=== PATIENT | female | born 1985 | race Caucasian/White ===

== ENCOUNTER 2018-06-26 12:44 | Emergency (ER) | payer OTHER ==
[2018-06-26 13:51] LABS: Urine Blood NEGATIVE (NEG); Urine Glucose NEGATIVE (NEG); Urine Protein NEGATIVE (NEG); Urine pH 8.5 (5.0-7.0)
--- NOTE | 2018-06-26 14:36 | EDPHYS ---
Physician Documentation [facility] Name: Mera Perea Age: 33 yrs Sex: Female : 1985 Arrival Date: 06/26/2018 Time: 12:47 Bed 10 Private MD: None, None ED Physician Jose Luis Jackson HPI: 06/26 17:11 This 33 yrs old Female presents to ER via Ambulatory with complaints of Flu ps1 Symptoms. 17:11 patient has had a cough, n/v, fatigue headache for the last 24 hours. Course is ps1 constant. 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 Tried to take motrin. No remitting factors. Urine is cloudy. . 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 - Social history:: Smoking status: Patient uses tobacco products, denies chronic smoking, but will smoke occasionally. - Ebola Screening: : Patient positive for the following Ebola Virus Disease associated symptoms: . ROS: 17:11 Eyes: Negative for injury, pain, redness, and discharge, ENT: Negative for injury, ps1 pain, and discharge, Cardiovascular: Negative for chest pain, palpitations, and edema, Respiratory: Negative for shortness of breath, cough, wheezing, and pleuritic chest pain, MS/Extremity: Negative for injury and deformity, Skin: Negative for injury, rash, and discoloration. 17:11 Respiratory: Positive for cough. 17:11 Abdomen/GI: Positive for nausea and vomiting. 17:11 Neuro: Positive for headache. Exam: 17:11 Constitutional: This is a well developed, well nourished patient who is awake, alert, ps1 and in no acute distress. Head/Face: Normocephalic, atraumatic. Eyes: Pupils equal round and reactive to light, extra-ocular motions intact. Lids and lashes normal. Conjunctiva and sclera are non-icteric and not injected. Chest/axilla: Normal chest wall appearance and motion. Nontender with no deformity. No lesions are appreciated. Cardiovascular: Regular rate and rhythm. No gallops, murmurs, or rubs. Normal PMI, no JVD. No pulse deficits. Respiratory: Lungs have equal breath sounds bilaterally, clear to auscultation and percussion. No rales, rhonchi or wheezes noted. No increased work of breathing, no retractions or nasal flaring. Abdomen/GI: Soft, non-tender, with normal bowel sounds. No distension or tympany. No guarding or rebound. No evidence of tenderness throughout. Skin: Warm, dry with normal turgor. Normal color with no rashes, no lesions, and no evidence of cellulitis. MS/ Extremity: Pulses equal, no cyanosis. Neurovascular intact. Full, normal range of motion. Neuro: Awake and alert, GCS 15, oriented to person, place, time, and situation. Cranial nerves II-XII grossly intact. Sensory grossly intact. Vital Signs: 12:55 BP 118 / 80; Pulse 63; Resp 18; Temp 98.1; Pulse Ox 99% on R/A; Weight 74.84 kg; Height ph 5 ft. 3 in. (160.02 cm); Pain 0/10; 12:55 Body Mass Index 29.23 (74.84 kg, 160.02 cm) ph MDM: 13:46 Patient medically screened. ps1 17:11 Data reviewed: vital signs, nurses notes, and as a result, I will discharge patient. ps1 06/26 13:00 Order name: Flu; Complete Time: 13:46 ph 06/26 13:34 Order name: Strep; Complete Time: 13:57 ps1 06/26 13:34 Order name: Urine Dipstick-Ancillary (obtain specimen); Complete Time: 13:37 ps1 06/26 13:47 Order name: Urine --Ancillary (enter results); Complete Time: 13:56 hb 06/26 13:47 Order name: Urine Dipstick--Ancillary (enter results); Complete Time: 13:56 hb 06/26 13:58 Order name: Throat Culture EDMS Administered Medications: No medications were administered Disposition: 06/26/18 14:35 Discharged to Home. Impression: viral illness. - Condition is Stable. - Discharge Instructions: Viral Respiratory Infection, [id number]. - Prescriptions for promethazine- codeine 6.25-10 mg/5 mL Oral syrup - take 5 milliliter by ORAL route every 4-6 hours as needed, not to exceed 30 mL in 24 hours; 120 milliliter. Zofran 4 mg Oral Tablet - take 1 tablet by ORAL route every 12 hours As needed; 20 tablet. - Work release form, Medication Reconciliation Form, Thank You Letter, Antibiotic Education, Prescription Opioid Use form. - Follow up: Private Physician; When: As needed; Reason: Recheck today's complaints, Continuance of care, Re-evaluation by your physician. Follow up: Emergency Department; When: As needed; Reason: Worsening of condition. - Problem is new. - Symptoms have improved. Signatures: Dispatcher [employer] EDDee Sneed RN RN ph Jose Luis Jackson MD MD ps1 Corrections: (The following items were deleted from the chart) 15:00 14:35 06/26/2018 14:35 Discharged to Home. Impression: viral illness. Condition is ph Stable. Forms are Medication Reconciliation Form, Thank You Letter, Antibiotic Education, Prescription Opioid Use. Follow up: Private Physician; When: As needed; Reason: Recheck today's complaints, Continuance of care, Re-evaluation by your physician. Follow up: Emergency Department; When: As needed; Reason: Worsening of condition. Problem is new. Symptoms have improved. ps1
--- NOTE | 2018-06-26 14:36 | ER ---
Nurse's Notes [facility] Name: Mera Perea Age: 33 yrs Sex: Female : 1985 Arrival Date: 06/26/2018 Time: 12:47 Bed 10 Private MD: None, None Diagnosis: viral illness Presentation: 06/26 12:54 Presenting complaint: Patient states: Dizziness and vomiting since this morning, also ph reports nasal congestion, cough and chills. Transition of care: patient was not received from another setting of care. Onset of symptoms was June 26, 2018. Risk Assessment: Do you want to hurt yourself or someone else? Patient reports no desire to harm self or others. Initial Sepsis Screen: Does the patient meet any 2 criteria? No. Patient's initial sepsis screen is negative. Does the patient have a suspected source of infection? No. Patient's initial sepsis screen is negative. Care prior to arrival: None. 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 - Social history:: Smoking status: Patient uses tobacco products, denies chronic smoking, but will smoke occasionally. - Ebola Screening: : Patient positive for the following Ebola Virus Disease associated symptoms: . Screenin:33 Abuse screen: Denies threats or abuse. Denies injuries from another. Nutritional ph screening: No deficits noted. Tuberculosis screening: No symptoms or risk factors identified. Fall Risk None identified. Assessment: 13:00 General: Appears in no apparent distress. comfortable, slender, well groomed, Behavior ph is calm, cooperative, appropriate for age, Denies fever. Pain: Denies pain. Neuro: Level of Consciousness is awake, alert, obeys commands, Oriented to person, place, time, situation, Reports dizziness, Denies weakness blurred vision headache. Cardiovascular: Capillary refill < 3 seconds in bilateral fingers Patient's skin is warm and dry. GI: Reports nausea, vomiting, Patient currently denies abdominal pain, diarrhea. : Urine is cloudy, Denies burning with urination, urinary frequency. EENT: Reports nasal congestion nasal discharge Denies pain when swallowing. Derm: Skin is intact, is healthy with good turgor, Skin is pink, warm \T\ dry. Musculoskeletal: Circulation, motion, and sensation intact. Range of motion: intact in all extremities. Vital Signs: 12:55 BP 118 / 80; Pulse 63; Resp 18; Temp 98.1; Pulse Ox 99% on R/A; Weight 74.84 kg; Height ph 5 ft. 3 in. (160.02 cm); Pain 0/10; 12:55 Body Mass Index 29.23 (74.84 kg, 160.02 cm) ph ED Course: 12:47 Patient arrived in ED. sb2 12:48 None, None is Private Physician. sb2 12:55 Triage completed. ph 12:56 Arm band placed on. ph 13:00 Patient has correct armband on for positive identification. Bed in low position. Call ph light in reach. Side rails up X 1. Warm blanket given. 13:00 Urine collected: clean catch specimen, cloudy, Flu and/or RSV swab sent to lab. Strep ph swab sent to lab. 13:23 Jose Luis Jackson MD is Attending Physician. ps1 13:25 Dee Luna RN is Primary Nurse. ph Administered Medications: No medications were administered Outcome: 14:35 Discharge ordered by . ps1 15:00 Patient left the ED. ph Signatures: Dee Luna, MANUELITO RN ph Jose Luis Jackson MD MD ps1 Taylor Philip sb2
[2018-06-26 15:43] VITALS: BP 118/80; TEMP 98.1; O2SAT 99
== END 2018-06-26 15:00 | disposition home or self-care (01) ==
LOC: ER 12:44
DX: B34.9 Viral infection, unspecified (principal); Z72.0 Tobacco use
CPT/HCPCS: 81003; 81025; 87070; 87081; 87804; 99282

== ENCOUNTER 2019-01-27 08:44 | Emergency (ER) | payer OTHER, SELFPAY ==
[2019-01-27 10:14] LABS: Absolute Lymphocytes (CBC) 1.3 K/uL (0.7-4.9); Absolute Monocytes 0.3 K/uL (0.1-1.3); Absolute Neutrophil 3.6 K/uL (1.8-8.0); Basophils % 1.1 % (0-1.3); Eosinophils % 3.7 % (0-4.4); Hematocrit 41.8 % (36.0-45.0); Lymphocytes % 23.7 % (15.3-44.8); MPV 10.5 fL (7.6-11.3); Monocytes % 6.1 % (3.3-12.3); RBC Red Blood Cell Count 4.33 M/uL (3.86-4.86)
[2019-01-27 10:29] LABS: BUN Blood Urea Nitrogen 12 mg/dL (7-18); Bicarbonate 28 mmol/L (21-32); Glucose Level 92 mg/dL (74-106); Potassium 3.9 mmol/L (3.5-5.1); Sodium Level 139 mmol/L (136-145)
--- NOTE | 2019-01-27 10:44 | EDPHYS ---
Physician Documentation [facility] Name: Mera Perea Age: 33 yrs Sex: Female : 1985 Arrival Date: 01/27/2019 Time: 08:48 Bed 9 Private MD: ED Physician Miko Cason HPI: 01/27 09:57 This 33 yrs old Female presents to ER via Ambulatory with complaints of jr8 Cellulitis. 09:57 The patient's rash thought to be caused by an unknown cause. The rash is located on the jr8 right leg and left leg. The rash can be described as erythematous, patchy. Onset: The symptoms/episode began/occurred acutely, yesterday. Associated signs and symptoms: Pertinent positives: Pain. Severity of symptoms: At their worst the symptoms were mild in the emergency department the symptoms are unchanged. The patient has not experienced similar symptoms in the past. The patient has not recently seen a physician. Patient stated that she noticed mild erythema to inner right leg near ankle yesterday while at work. Today it increased in size and now has a patchy area to left leg in same spot. Denies itching. Denies recent contact with any plants or other substances that could of caused this . 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 - Social history:: Smoking status: Patient uses tobacco products, denies chronic smoking, but will smoke occasionally. - Ebola Screening: : Patient negative for fever greater than or equal to 101.5 degrees Fahrenheit, and additional compatible Ebola Virus Disease symptoms Patient denies exposure to infectious person Patient denies travel to an Ebola-affected area in the 21 days before illness onset No symptoms or risks identified at this time. ROS: 09:57 Constitutional: Negative for fever, chills, and weight loss. jr8 09:57 Skin: Positive for rash. 09:57 All other systems are negative. 09:57 Hematologic/Lymphatic: Negative for anemia, abnormal bleeding, swollen nodes, joint jr8 pain, tender nodes. Exam: 09:57 Eyes: Pupils equal round and reactive to light, extra-ocular motions intact. Lids and jr8 lashes normal. Conjunctiva and sclera are non-icteric and not injected. Cornea within normal limits. Periorbital areas with no swelling, redness, or edema. ENT: Nares patent. No nasal discharge, no septal abnormalities noted. Tympanic membranes are normal and external auditory canals are clear. Oropharynx with no redness, swelling, or masses, exudates, or evidence of obstruction, uvula midline. Mucous membranes moist. Neck: Trachea midline, no thyromegaly or masses palpated, and no cervical lymphadenopathy. Supple, full range of motion without nuchal rigidity, or vertebral point tenderness. No Meningismus. Cardiovascular: Regular rate and rhythm with a normal S1 and S2. No gallops, murmurs, or rubs. Normal PMI, no JVD. No pulse deficits. Respiratory: Lungs have equal breath sounds bilaterally, clear to auscultation and percussion. No rales, rhonchi or wheezes noted. No increased work of breathing, no retractions or nasal flaring. Abdomen/GI: Soft, non-tender, with normal bowel sounds. No distension or tympany. No guarding or rebound. No evidence of tenderness throughout. Back: No spinal tenderness. No costovertebral tenderness. Full range of motion. MS/ Extremity: Pulses equal, no cyanosis. Neurovascular intact. Full, normal range of motion. Neuro: Awake and alert, GCS 15, oriented to person, place, time, and situation. Cranial nerves II-XII grossly intact. Motor strength 5/5 in all extremities. Sensory grossly intact. Cerebellar exam normal. Normal gait. 09:57 Skin: Patient has three patchy areas on both legs that are non blanching and petechial looking with mild erythema. No increase warmth felt when compared to other parts of the body. Mild pain to palpation. No underlying indurated tissue felt. No other rashes or bruising noted to the rest of patients body . Vital Signs: 09:07 BP 139 / 88; Pulse 80; Resp 16; Temp 98.4; Pulse Ox 98% on R/A; Weight 86.18 kg; Height iw 5 ft. 3 in. (160.02 cm); Pain 3/10; 10:35 BP 133 / 82; Pulse 78; Resp 16; Temp 98.1(TE); Pulse Ox 99% on R/A; mh5 09:07 Body Mass Index 33.66 (86.18 kg, 160.02 cm) iw MDM: 09:32 Patient medically screened. [facility] 10:41 Data reviewed: vital signs, nurses notes, lab test result(s), and as a result, I will jr8 discharge patient. Data interpreted: Pulse oximetry: on room air is 99 %. Interpretation: normal. Counseling: I had a detailed discussion with the patient and/or guardian regarding: the historical points, exam findings, and any diagnostic results supporting the discharge/admit diagnosis, lab results, the need for outpatient follow up, a family practitioner, to return to the emergency department if symptoms worsen or persist or if there are any questions or concerns that arise at home. ED course: Discussed with patient that at this time the rash seems more of a vasculitis like reaction then infection. Will start steroids instead of antibiotics at this time. If worse to come back. Otherwise needs f/u with PCP. Patient good with this . 01/27 09:48 Order name: CBC with Diff [facility] 01/27 09:48 Order name: Basic Metabolic Panel; Complete Time: 10:41 [facility] 01/27 09:48 Order name: Urine Dipstick-Ancillary (obtain specimen); Complete Time: 10:56 [facility] 01/27 09:49 Order name: CBC with Automated Diff; Complete Time: 10:17 EDMS Administered Medications: No medications were administered Disposition: 13:42 Co-signature as Attending Physician, Miko Cason MD. Disposition: 01/27/19 10:43 Discharged to Home. Impression: Vasculitis limited to the skin, unspecified. - Condition is Stable. - Discharge Instructions: Vasculitis. - Prescriptions for Prednisone 20 mg Oral Tablet - take 3 tablet by ORAL route once daily for 5 days; 15 tablet. - Medication Reconciliation Form, Thank You Letter, Antibiotic Education, Prescription Opioid Use form. - Follow up: Private Physician; When: 5 - 6 days; Reason: Recheck today's complaints, Continuance of care, Re-evaluation by your physician. - Problem is new. - Symptoms are unchanged. Signatures: Dispatcher [employer] EDChristina Barrientos RN RN iw Roszak, Josh, PA PA Miko Solomon MD MD Corrections: (The following items were deleted from the chart) 11:01 10:43 01/27/2019 10:43 Discharged to Home. Impression: Vasculitis limited to the skin, iw unspecified. Condition is Stable. Forms are Medication Reconciliation Form, Thank You Letter, Antibiotic Education, Prescription Opioid Use. Follow up: Private Physician; When: 5 - 6 days; Reason: Recheck today's complaints, Continuance of care, Re-evaluation by your physician. Problem is new. Symptoms are unchanged. jr8
--- NOTE | 2019-01-27 10:44 | ER ---
Nurse's Notes [facility] Name: Mera Perea Age: 33 yrs Sex: Female : 1985 Arrival Date: 01/27/2019 Time: 08:48 Bed 9 Private MD: Diagnosis: Vasculitis limited to the skin, unspecified Presentation: 01/27 09:05 Presenting complaint: Patient states: area of redness to ramiro ankle area, right worse iw than left, appears to be cellulitis, hx of cellulitis 4 years ago, noticed it yesterday. Transition of care: patient was not received from another setting of care. Onset of symptoms was January 27, 2019. Risk Assessment: Do you want to hurt yourself or someone else? Patient reports no desire to harm self or others. Initial Sepsis Screen: Does the patient meet any 2 criteria? No. Patient's initial sepsis screen is negative. Does the patient have a suspected source of infection? No. Patient's initial sepsis screen is negative. Care prior to arrival: None. 09:05 Method Of Arrival: Ambulatory iw 09:05 Acuity: MERLENE 4 iw 09:54 Acuity: MERLENE 3 iw Triage Assessment: 09:15 General: Appears in no apparent distress. General: Behavior is calm, cooperative. Pain: iw Complains of pain in left leg and right leg. Neuro: Level of Consciousness is awake, alert, obeys commands, Moves all extremities. Cardiovascular: Patient's skin is warm and dry. Respiratory: Respiratory effort is even, unlabored. GI: No signs and/or symptoms were reported involving the gastrointestinal system. Derm: redness to ramiro ankles. Musculoskeletal: Range of motion: intact in all extremities. 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 - Social history:: Smoking status: Patient uses tobacco products, denies chronic smoking, but will smoke occasionally. - Ebola Screening: : Patient negative for fever greater than or equal to 101.5 degrees Fahrenheit, and additional compatible Ebola Virus Disease symptoms Patient denies exposure to infectious person Patient denies travel to an Ebola-affected area in the 21 days before illness onset No symptoms or risks identified at this time. Screenin:00 Abuse screen: Denies threats or abuse. Denies injuries from another. Nutritional iw screening: No deficits noted. Tuberculosis screening: No symptoms or risk factors identified. Fall Risk None identified. Assessment: 09:50 Reassessment: see triage assessment. iw 10:40 Reassessment: Patient appears in no apparent distress at this time. Patient and/or iw family updated on plan of care and expected duration. Pain level reassessed. Patient is alert, oriented x 3, equal unlabored respirations, skin warm/dry/pink. Vital Signs: 09:07 BP 139 / 88; Pulse 80; Resp 16; Temp 98.4; Pulse Ox 98% on R/A; Weight 86.18 kg; Height iw 5 ft. 3 in. (160.02 cm); Pain 3/10; 10:35 BP 133 / 82; Pulse 78; Resp 16; Temp 98.1(TE); Pulse Ox 99% on R/A; 5 09:07 Body Mass Index 33.66 (86.18 kg, 160.02 cm) iw ED Course: 08:48 Patient arrived in ED. as 09:06 Triage completed. iw 09:07 Arm band placed on. iw 09:08 Christina Weston, RN is Primary Nurse. iw 09:15 Prosper Umana PA is PHCP. jr8 09:15 Miko Cason MD is Attending Physician. jr8 10:00 Patient has correct armband on for positive identification. Bed in low position. Call 5 light in reach. Pulse ox on. NIBP on. 10:10 Initial lab(s) drawn, by me, sent to lab. Inserted saline lock: 22 gauge in left 5 antecubital area, using aseptic technique. Blood collected. 11:00 No provider procedures requiring assistance completed. Patient did not have IV access iw during this emergency room visit. Administered Medications: No medications were administered Outcome: 10:43 Discharge ordered by . jr8 11:00 Discharged to home ambulatory. iw 11:00 Condition: good 11:00 Discharge instructions given to patient, Instructed on discharge instructions, follow up and referral plans. medication usage, Demonstrated understanding of instructions, follow-up care, medications, Prescriptions given X 1. 11:01 Patient left the ED. iw Signatures: Leilani Kwon Irene, RN RN iw Prosper Umana PA PA jr8 Amisha Kwon mh5
[2019-01-27 11:17] VITALS: BP 133/82; TEMP 98.1; O2SAT 99
== END 2019-01-27 11:01 | disposition home or self-care (01) ==
LOC: ER 08:44
DX: L95.9 Vasculitis limited to the skin, unspecified (principal); Z72.0 Tobacco use
CPT/HCPCS: 36415; 80048; 85025; 99284

== ENCOUNTER 2020-08-01 20:30 | Emergency (ER) | payer OTHER, SELFPAY ==
--- NOTE | 2020-08-01 22:11 | ER ---
Nurse's Notes [facility] Name: Mera Perea Age: 35 yrs Sex: Female : 1985 Arrival Date: 08/01/2020 Time: 20:34 Bed 17 Private MD: Diagnosis: Acute pharyngitis;Cough Presentation: 08/01 20:39 Chief complaint: Patient states: Tickling in back of throat, low grade fever, and ll1 fatigue started today. Low grade fever at home. No N/V/D. Decreased appetite. Coronavirus screen: Client denies travel out of the [place] in the last 14 days. fatigue, headache, sore throat. Ebola Screen: Patient denies travel to an Ebola-affected area in the 21 days before illness onset. Initial Sepsis Screen: Does the patient meet any 2 criteria? HR > 90 bpm. No. Patient's initial sepsis screen is negative. Does the patient have a suspected source of infection? Yes: Other: SORE THROAT. Risk Assessment: Do you want to hurt yourself or someone else? Patient reports no desire to harm self or others. Onset of symptoms was August 01, 2020. 20:39 Method Of Arrival: Ambulatory ll1 20:39 Acuity: MERLENE 4 ll1 Historical: - Allergies: 20:41 No Known Allergies; ll1 - PMHx: 20:41 Anxiety; Depression; ll1 - PSHx: 20:41 Tubal ligation; ll1 - Immunization history:: Flu vaccine is not up to date. - Social history:: Smoking status: Patient/guardian denies using tobacco, Stopped _ months ago 3. Screenin:37 Abuse screen: Denies threats or abuse. Denies injuries from another. Nutritional mg2 screening: No deficits noted. Tuberculosis screening: No symptoms or risk factors identified. Fall Risk None identified. Assessment: 21:36 General: Appears in no apparent distress. comfortable, Behavior is calm, cooperative. mg2 Pain: Complains of pain in throat. Neuro: Level of Consciousness is awake, alert, obeys commands, Oriented to person, place, time, situation. Cardiovascular: Capillary refill < 3 seconds Patient's skin is warm and dry. Respiratory: Reports cough that is Airway is patent Respiratory effort is even, unlabored, Respiratory pattern is regular, symmetrical. GI: No signs and/or symptoms were reported involving the gastrointestinal system. : No signs and/or symptoms were reported regarding the genitourinary system. EENT: Reports sore throat. Derm: Skin is intact, is healthy with good turgor, Skin is pink, warm \T\ dry. normal. Musculoskeletal: Circulation, motion, and sensation intact. Capillary refill < 3 seconds. Vital Signs: 20:39 BP 134 / 103; Pulse 93; Resp 17; Temp 98.3; Pulse Ox 96% ; Weight 88.45 kg; Height 5 ll1 ft. 3 in. (160.02 cm); Pain 5/10; 22:19 BP 125 / 80; Pulse 80; Resp 17; Temp 98.4; Pulse Ox 100% on R/A; mg2 20:39 Body Mass Index 34.54 (88.45 kg, 160.02 cm) ll1 ED Course: 20:34 Patient arrived in ED. ag3 20:41 Triage completed. ll1 20:41 Mayito Yousif PA is PHCP. cp 20:41 Doc Gomez MD is Attending Physician. cp 20:42 Arm band placed on Patient placed in an exam room, on a stretcher. ll1 20:53 Aleksandr Aldridge, RN is Primary Nurse. mg2 21:18 Flu and/or RSV swab sent to lab. Strep swab sent to lab. jp3 21:37 Patient has correct armband on for positive identification. mg2 21:37 No provider procedures requiring assistance completed. Patient did not have IV access mg2 during this emergency room visit. Administered Medications: No medications were administered Outcome: 22:10 Discharge ordered by MD. cp 22:20 Discharged to home ambulatory. mg2 22:20 Condition: stable 22:20 Discharge instructions given to patient, Instructed on discharge instructions, follow up and referral plans. medication usage, Demonstrated understanding of instructions, follow-up care, medications, Prescriptions given X 1. 22:20 Patient left the ED. mg2 Signatures: Mayito Yousif PA PA cp Gardose, Michele, MANUELITO RN mg2 Norbert Singh 3 Lianna Garcia 3 Britney Daigle RN RN ll1 Corrections: (The following items were deleted from the chart) 08/02 04:26 08/01 22:20 EENT: Throat mg2 mg2
--- NOTE | 2020-08-01 22:11 | EDPHYS ---
Physician Documentation [facility] Name: Mera Perea Age: 35 yrs Sex: Female : 1985 Arrival Date: 08/01/2020 Time: 20:34 Bed 17 Private MD: ED Physician Doc Gomez HPI: 08/01 21:29 This 35 yrs old Female presents to ER via Ambulatory with complaints of Sore cp Throat. 21:29 The patient presents with sore throat. The patient describes throat pain as "tickle" in cp throat. Onset: The symptoms/episode began/occurred today. Associated signs and symptoms: Pertinent positives: cough, fever, Pertinent negatives chest pain, dysphagia, earache, headache. Patient reports having sore throat, cough earlier this week on Monday and having negative test for COVID-19 on Monday. Historical: - Allergies: 20:41 No Known Allergies; ll1 - PMHx: 20:41 Anxiety; Depression; ll1 - PSHx: 20:41 Tubal ligation; ll1 - Immunization history:: Flu vaccine is not up to date. - Social history:: Smoking status: Patient/guardian denies using tobacco, Stopped _ months ago 3. ROS: 21:33 Constitutional: Negative for body aches, chills, fever. cp 21:33 ENT: Positive for sore throat, Negative for drainage from ear(s), ear pain, difficulty cp swallowing, difficulty handling secretions. 21:33 Respiratory: Positive for cough. 21:33 Skin: Negative for rash. 21:33 Neuro: Negative for headache. 21:33 All other systems are negative. Exam: 21:35 Constitutional: The patient appears in no acute distress, alert, awake, non-toxic, well cp developed, well nourished. 21:35 Head/Face: Normocephalic, atraumatic. cp 21:35 Eyes: Periorbital structures: appear normal, Conjunctiva: normal, no exudate, no injection, Lids and lashes: appear normal, bilaterally. 21:35 ENT: External ear(s): are unremarkable, Ear canal(s): are normal, clear, TM's: dullness, bilaterally, Nose: is normal, Mouth: Lips: moist, Oral mucosa: moist, Posterior pharynx: Airway: no evidence of obstruction, patent, Tonsils: no enlargement, no exudate, swelling, is not appreciated, erythema, that is mild, exudate, is not appreciated, Voice: is normal. 21:35 Neck: Lymph nodes: no appreciated lymphadenopathy. 21:35 Chest/axilla: Inspection: normal. 21:35 Cardiovascular: Rate: normal. 21:35 Respiratory: the patient does not display signs of respiratory distress, Respirations: normal, no use of accessory muscles, no retractions, labored breathing, is not present, Breath sounds: are clear throughout, no decreased breath sounds, no stridor, no wheezing. 21:35 Abdomen/GI: Exam negative for discomfort, distension, guarding, Inspection: abdomen appears normal. Vital Signs: 20:39 BP 134 / 103; Pulse 93; Resp 17; Temp 98.3; Pulse Ox 96% ; Weight 88.45 kg; Height 5 ll1 ft. 3 in. (160.02 cm); Pain 5/10; 22:19 BP 125 / 80; Pulse 80; Resp 17; Temp 98.4; Pulse Ox 100% on R/A; mg2 20:39 Body Mass Index 34.54 (88.45 kg, 160.02 cm) ll1 MDM: 20:47 Patient medically screened. cp 21:30 Differential diagnosis: group A strep tonsillitis, influenza, pharyngitis. cp 22:10 Data reviewed: vital signs, nurses notes, lab test result(s), and as a result, I will cp discharge patient. 22:10 Counseling: I had a detailed discussion with the patient and/or guardian regarding: the cp historical points, exam findings, and any diagnostic results supporting the discharge/admit diagnosis, lab results, to return to the emergency department if symptoms worsen or persist or if there are any questions or concerns that arise at home. 08/01 21:06 Order name: Influenza Screen (a \\T\\ B); Complete Time: 22:00 08/01 21:06 Order name: Strep; Complete Time: 22:00 08/01 22:08 Order name: Throat Culture EDMS Administered Medications: No medications were administered Disposition: 22:30 Chart complete. 08/02 04:54 Co-signature as Attending Physician, Doc Gomez MD. [email or web address] Disposition: 08/01/20 22:10 Discharged to Home. Impression: Acute pharyngitis, Cough. - Condition is Stable. - Discharge Instructions: Pharyngitis, Cough, Adult. - Prescriptions for Tessalon Perles 100 mg Oral Capsule - take 2 capsule by ORAL route every 8 hours As needed; 20 capsule. - Medication Reconciliation Form, Thank You Letter, Antibiotic Education, Prescription Opioid Use form. - Follow up: Private Physician; When: 2 - 3 days; Reason: Worsening of condition. - Problem is new. - Symptoms have improved. Signatures: Dispatcher [employer] EDMS Mayito Yousif PA PA cp Aleksandr Aldridge, RN RN mg2 Britney Daigle RN RN ll1 Doc Gomez MD MD mh7 Corrections: (The following items were deleted from the chart) 08/01 22:20 22:10 08/01/2020 22:10 Discharged to Home. Impression: Acute pharyngitis; Cough. mg2 Condition is Stable. Forms are Medication Reconciliation Form, Thank You Letter, Antibiotic Education, Prescription Opioid Use. Follow up: Private Physician; When: 2 - 3 days; Reason: Worsening of condition. Problem is new. Symptoms have improved. cp
[2020-08-04 04:08] VITALS: BP 125/80; TEMP 98.4; O2SAT 100
== END 2020-08-01 22:20 | disposition home or self-care (01) ==
LOC: ER 20:30
DX: R05 Cough (principal)
CPT/HCPCS: 87070; 87081; 87804; 99283

== ENCOUNTER 2021-08-04 20:20 | Emergency (ER) | payer OTHER ==
--- OUTSIDE RECORDS SUMMARY | 2021-08-04 20:23 | XMS REPORT | Continuity of Care Document ---
:1985 Author Organization [facility] t Address [address] [place] [address] Care Team Providers Name Role Phone Pcp, Does Not Have A Primary Care Physician Monica Lucio MD Attending Clinician MONICA LUCIO Attending Clinician Unavailable MONICA LUCIO Attending Clinician Unavailable CHEVY Attending Clinician Unavailable Luigi WHEELER Attending Clinician Unavailable Payers Payer Name Policy Type Policy Number Effective Date Expiration Date S ource Problems Condition Condition Condition Status Onset Resolution Last Treating Co mments Source Name Details Category Date Date Treatment Clinician Date No known No known Disease Unive rs active active ity of problems problems [facility] Allergies, Adverse Reactions, Alerts Allergy Allergy Status Severity Reaction(s) Onset Inactive Treating Comm ents Source Name Type Date Date Clinician NO KNOWN Drug Active Univers ALLERGIE Class ity of [facility] Social History Social Habit Start Date Stop Date Quantity Comments Source Exposure to Not sure [facility] SARS-CoV-2 (event) Medica l Branch Sex Assigned At [birth year] [facility] 00:00:00 00:00:00 [facility] Smoking Status Start Date Stop Date Source Unknown if ever smoked [facility] Medications Ordered Filled Start Stop Current Ordering Indication Dosage Frequency Signature Comments Components Source Medication Medication Date Date Medication? Clinician (SIG) Name Name NaCl 0.9% 2020- No [id number] 8mL Univ ers (NS) 05-07 ity of injection 8 15:30: 14:35 [facility] 00 :00 [facility] NaCl 0.9% 2020- No [id number] 8mL 8 mL, Uni vers (NS) 05-07 Epidural, ity of injection 8 15:30: 14[place]35 [place] dose, On Medical Fri Branch 05/07/21 at 1030, Routine iohexoL 2020- No [id number] 3mL Univer s (OMNIPAQUE 05-07 ity of 300-50 mL)) 15:15: 14:33 [place] injection 3 00 :00 Medical mL Branch lidocaine 2020- No [id number] 10mL Univ ers 1% (PF) 05-07 ity of (XYLOCAINE) 15:15: 14:34 [place] injection 00 :00 Medical 10 mL Branch triamcinolo 2020- No [id number] 80mg Un justice ne 05-07 ity of acetonide 15:15: 14:36 [place] (KENALOG) 00 :00 Medical injection Branch 80 mg triamcinolo 2020- No [id number] 80mg 80 mg, Univers ne 05-07 Epidural, ity of acetonide 15:15: 14:36 [place]CE, 1 [place] ([place] 00 :00 dose, On Medica l injection Fri Branch 80 mg 05/07/21 at 1015, Routine lidocaine 2020- No [id number] 10mL 10 mL, Un justice 1% (PF) 05-07 Infiltrati ity o f (XYLOCAINE) 15:15: 14:34 on, ONCE, [place] injection 00 :00 1 dose, On Medi mary jo 10 mL Fri Branch 05/07/21 at 1015, Routine iohexoL 2020- No [id number] 3mL 3 mL, Unive rs (OMNIPAQUE 05-07 Injection, it y of 300-50 mL)) 15:15: 14:33 [place]CE[place] 1 [place] 3 00 :00 dose, On Medi mary jo mL Fri Branch 05/07/21 at 1015, Routine lactated 2020- No [id number] 500mL Univ ers ringers IV 05-07 ity of infusion 15:00: 19:52 [place] 500 mL 00 :04 Medical Branch gabapentin 2020-0 Yes [id number] 300mg Take 1 Univers 300 mg 8-17 capsule by ity of capsule 00:00: mouth 3 [place] 00 (three) Medical times Branch daily. gabapentin Yes [id number] 300mg Take 1 Univers 300 mg 8-17 capsule by ity of capsule 00:00: mouth 3 [place] 00 (three) Medical times Branch daily. gabapentin Yes [id number] 300mg Take 1 Univers 300 mg 8-17 capsule by ity of capsule 00:00: mouth 3 [place] 00 (three) Medical times Branch daily. Vital Signs Vital Name Observation Time Observation Value Comments Source Systolic blood 2021-05-07 15:05:00 122 mm[facility]Hg[facility] Diastolic blood 2021-05-07 15:05:00 86 mm[Hg] [facility] [place] Heart rate 2021-05-07 15:05:00 75 /min [facility] Respiratory rate 2021-05-07 14:50:00 17 /min [facility] Body temperature 2021-05-07 13:39:00 36.67 Narda [facility] Body height 2021-05-07 13:39:00 160 cm [facility] Body weight 2021-05-07 13:39:00 90.719 kg [facility] BMI 2021-05-07 13:39:00 35.43 kg/m2 [facility] Oxygen saturation in 2021-05-07 13:39:00 98 /min [facility] Arterial blood by [facility] Pulse oximetry Branch Procedures Procedure Date / Time Performed Performing Clinician [facility] e FL TIME OR 2021-05-07 14:50:11 Bárbara Lucio [facility] [place] (NON-REPORTABLE) Medical Branch Encounters Start End Encounter Admission Attending Care Care Encounter Source Date/Time Date/Time Type Type Clinicians Facility Department ID 2021-05-10 2021-05-10 Telephone UZMA Lucio [id number] [facility] 00:00:00 00:00:00 Bárbara MUÑOZ [id number] Alayna DUNNE [id number] [facility] [id number] [place] AND [address] [facility] 2021-05-07 2021-05-07 [facility] [id number] Univers 09:18:53 23:59:00 Encounter Bárbara WANDA [id number] ity juan Orellanaarnulfo DUNNE [id number] [facility] [id number] [place] AND [place] [address] [place] [facility] 2021-05-07 2021-05-07 Outpatient R BÁRBARA LUCIO [facility] [id number] Univers 09:30:00 09:30:00 [facility]UC[facility] [id number] [facility] 2021-05-07 2021-05-07 Outpatient R BÁRBARA LUCIO [facility] [id number] Univers 09:30:00 09:30:00 BÁRBARA LUCIO [facility] 2021-05-07 2021-05-07 Office [facility] [id number] Univers 08:23:15 08:53:15 Visit Bárbara MUÑOZ [id number] ity Harini DUNNE [id number] [facility] s HELPER [id number] [place] AND [place] [address] [place] [facility] 2021-04-29 2021-04-29 Outpatient R MICHELLE REECE [facility] [id number] Univers 11:45:00 11:45:00 [id number] [facility] 2021-04-09 2021-04-09 Outpatient R [facility] [id number] Univers 08:20:00 08:20:00 [id number] [facility] 2021-04-09 2021-04-09 Outpatient R LIAM [facility] [id number] Univers 08:20:00 08:20:00 CONSUELO [facility] 2021-03-30 2021-03-30 Outpatient R MICHELLE REECE [facility] [id number] Univers 11:15:00 11:15:00 [facility] Results This patient has no known results.
[2021-08-04 21:25] LABS: SARS-COV-2 RT PCR NEGATIVE (NEGATIVE)
--- NOTE | 2021-08-04 21:38 | ER ---
Nurse's Notes [facility] Name: Mera Perea Age: 36 yrs Sex: Female : 1985 Arrival Date: 08/04/2021 Time: 20: Bed 26 Private MD: Diagnosis: Diarrhea, unspecified Presentation: 08/04 20:39 Chief complaint: Patient states: Nausea vomiting and fever. Coronavirus screen: Vaccine iw status: Patient reports receiving the 2nd dose of the covid vaccine. Client denies travel out of the [place] in the last 14 days. At this time, the client does not indicate any symptoms associated with coronavirus-19. Ebola Screen: Patient denies exposure to infectious person. No symptoms or risks identified at this time. Initial Sepsis Screen: Does the patient meet any 2 criteria? No. Patient's initial sepsis screen is negative. Risk Assessment: Do you want to hurt yourself or someone else? Patient reports no desire to harm self or others. Onset of symptoms was August 04, 2021 at 16:00. 20:39 Method Of Arrival: Ambulatory iw 20:39 Acuity: MERLENE 3 iw 21:46 Initial Sepsis Screen: Does the patient have a suspected source of infection? No. sv1 Patient's initial sepsis screen is negative. Triage Assessment: 20:41 General: Appears distressed, uncomfortable, ill. Pain: Denies pain. GI: Reports nausea, iw vomiting. 21:44 General: Behavior is cooperative, appropriate for age. sv1 [employer]: 21:43 2, Full Term 2, Premature 0, 0, Living 2 sv1 Historical: - Home Meds: 20:41 Wellbutrin Oral [Active]; iw - PMHx: 20:41 Anxiety; Depression; iw - Immunization history:: Adult Immunizations up to date, Client reports receiving the 2nd dose of the Covid vaccine, Last tetanus immunization: up to date. - Family history:: not pertinent. - Social history:: Smoking status: unknown. Screenin:42 Abuse screen: none. Nutritional screening: No deficits noted. Tuberculosis screening: iw No symptoms or risk factors identified. Fall Risk None identified. Assessment: 21:44 GI: Bowel sounds present X 4 quads. sv1 21:45 GI: Abdomen is round. sv1 Vital Signs: 20:38 BP 115 / 87; Pulse 97; Resp 18; Temp 98.8; Pulse Ox 100% 0 lpm ; Weight 95.25 kg; iw Height 5 ft. 3 in. (160.02 cm); Pain 0/10; 21:43 BP 144 / 112; Pulse 80; Resp 18; Temp 89.2; Pulse Ox 99% 0 lpm ; sv1 20:38 Body Mass Index 37.20 (95.25 kg, 160.02 cm) ED Course: 20:22 Patient arrived in ED. kc5 20:30 Christina Weston, RN is Primary Nurse. iw 20:32 Chino Baptiste PA is PHCP. [facility] 20:32 Kishan Thakkar MD is Attending Physician. [facility] 20:41 Triage completed. iw 20:41 Arm band placed on right wrist. iw 20:42 Patient has correct armband on for positive identification. Bed in low position. Call iw light in reach. Side rails up X 1. 20:55 COVID-19/FLU A+B (Document "Date of Onset" if Symptomatic) Sent. ld1 21:44 No provider procedures requiring assistance completed. Patient did not have IV access sv1 during this emergency room visit. Administered Medications: No medications were administered Outcome: 21:37 Discharge ordered by . [facility] 21:44 Discharged to home ambulatory. sv1 21:44 Condition: stable 21:44 Discharge instructions given to patient. 21:47 Patient left the ED. sv1 Signatures: Chino Baptiste PA PA jmm Williams, Irene, RN RN Luz Marina Sim RN RN ld1 Paola Yost kc5 Nathan Stallworth RN RN sv1
--- NOTE | 2021-08-04 21:38 | EDPHYS ---
Physician Documentation [facility] Name: Mera Perea Age: 36 yrs Sex: Female : 1985 Arrival Date: 08/04/2021 Time: 20:22 Bed 26 Private MD: ED Physician Kishan Thakkar HPI: 08/04 21:35 This 36 yrs old Female presents to ER via Ambulatory with complaints of Fever, Vomiting.jmm 21:35 Onset: The symptoms/episode began/occurred gradually, today. Modifying factors: there jmm are no obvious modifying factors. Associated signs and symptoms: Pertinent positives: abdominal pain, diarrhea. The patient has not experienced similar symptoms in the past. Denies cough or vomiting. Denies shortness of breath. CAN CLEANER: 21:43 2, Full Term 2, Premature 0, 0, Living 2 sv1 Historical: - Home Meds: 20:41 Wellbutrin Oral [Active]; iw - PMHx: 20:41 Anxiety; Depression; iw - Immunization history:: Adult Immunizations up to date, Client reports receiving the 2nd dose of the Covid vaccine, Last tetanus immunization: up to date. - Family history:: not pertinent. - Social history:: Smoking status: unknown. ROS: 21:35 Constitutional: Positive for body aches, chills, fever. jmm 21:35 Respiratory: Negative for cough. 21:35 Abdomen/GI: Positive for nausea, diarrhea. 21:35 All other systems are negative. Exam: 21:35 Constitutional: This is a well developed, well nourished patient who is awake, alert, jmm and in no acute distress. Head/Face: atraumatic. Eyes: EOMI, no conjunctival erythema appreciated ENT: Moist Mucus Membranes Neck: Trachea midline, Supple Chest/axilla: Normal chest wall appearance and motion. Cardiovascular: Regular rate and rhythm. No edema appreciated Respiratory: Normal respirations, no respiratory distress appreciated 21:35 Skin: General appearance color normal MS/ Extremity: Moves all extremities, no obvious deformities appreciated, no edema noted to the lower extremities Neuro: Awake and alert, normal gait Psych: Behavior is normal, Mood is normal, Patient is cooperative and pleasant 21:35 Abdomen/GI: Inspection: abdomen appears normal, Bowel sounds: normal, Palpation: soft, moderate abdominal tenderness, in the right lower quadrant and left lower quadrant. Vital Signs: 20:38 BP 115 / 87; Pulse 97; Resp 18; Temp 98.8; Pulse Ox 100% 0 lpm ; Weight 95.25 kg; iw Height 5 ft. 3 in. (160.02 cm); Pain 0/10; 21:43 BP 144 / 112; Pulse 80; Resp 18; Temp 89.2; Pulse Ox 99% 0 lpm ; sv1 20:38 Body Mass Index 37.20 (95.25 kg, 160.02 cm) iw MDM: 21:34 Patient medically screened. [facility] 21:36 Data reviewed: vital signs, nurses notes. Counseling: I had a detailed discussion with [facility] the patient and/or guardian regarding: the historical points, exam findings, and any diagnostic results supporting the discharge/admit diagnosis, lab results, the need for outpatient follow up, to return to the emergency department if symptoms worsen or persist or if there are any questions or concerns that arise at home. ED course: Patient is alert not patient is alert and nontoxic in appearance in the ED. Abdomen is nontender to palpation. Patient advised follow-up PCP and otherwise given strict return precautions. Patient understood agrees plan of care.. 08/04 20:25 Order name: COVID-19/FLU A+B (Document "Date of Onset" if Symptomatic); Complete Time: ld1 21:32 Administered Medications: No medications were administered Disposition: 23:22 Co-signature as Attending Physician, Kishan Thakkar MD I agree with the assessment and rn plan of care. Attestation: The patient's history, exam findings, diagnostics, and a summary of any interventions or procedures was reviewed in detail with Chino CERRATO. Disposition Summary: 08/04/21 21:37 Discharge Ordered Location: Home [facility] Condition: Stable [facility] Diagnosis - Diarrhea, unspecified [facility] Followup: [facility] - With: Private Physician - When: 2 - 3 days - Reason: Recheck today's complaints, Continuance of care, Re-evaluation by your physician Discharge Instructions: - Discharge Summary Sheet [facility] - Food Choices to Help Relieve Diarrhea, Adult jmm - Diarrhea, Adult m Forms: - Medication Reconciliation Form [facility] - Thank You Letter [facility] - Antibiotic Education [facility] - Prescription Opioid Use [facility] Prescriptions: - ondansetron 4 mg Oral tablet,disintegrating - take 1 tablet by ORAL route every 4-6 hours for 2 days; 20 tablet; Refills: 0, [facility] Product Selection Permitted - dicyclomine 20 mg Oral Tablet - take 1 tablet by ORAL route 4 times per day; 30 tablet; Refills: 0, Product [facility] Selection Permitted Signatures: Dispatcher [employer] Chino Bustillo PA PA jmm Williams, Irene, RN RN iw Nieto, Roman, MD MD rn Villicano, Steven, RN RN sv1
[2021-08-04 22:03] VITALS: BP 144/112; TEMP 89.2; O2SAT 99
== END 2021-08-04 21:47 | disposition home or self-care (01) ==
LOC: ER 20:20
DX: R19.7 Diarrhea, unspecified (principal); F41.8 Other specified anxiety disorders; Z20.822 Contact with and (suspected) exposure to COVID-19
CPT/HCPCS: 0240U; 99283

== ENCOUNTER 2021-12-12 10:05 | Emergency (ER) | payer OTHER ==
--- OUTSIDE RECORDS SUMMARY | 2021-12-12 10:08 | XMS REPORT | Continuity of Care Document ---
:1985 Author Organization [facility] t Address [address] [place] [address] Care Team Providers Name Role Phone Pcp, [...] rs active active ity of problems problems [facility] Allergies, Adverse Reactions, Alerts Allergy Allergy Status Severity Reaction(s) Onset Inactive Treating Comm ents Source Name Type Date Date Clinician NO KNOWN Drug Active Univers ALLERGIE Class ity of S [facility] Social History Social Habit Start Date Stop Date Quantity Comments Source Exposure to Not sure [facility] SARS-CoV-2 (event) Medica l Branch Sex Assigned At [birth year] [facility] 00:00:00 00:00:00 [facility] Smoking Status Start Date Stop Date Source Unknown if ever smoked [facility] Medications Ordered Filled Start Stop Current Ordering Indication Dosage Frequency Signature Comments Components Source Medication Medication Date Date Medication? Clinician (SIG) Name Name NaCl 0.9% 2020- No [id number] 8mL Univ ers (NS) 05-07 ity of injection 8 15:30: 14:35 [facility] 00 :00 [facility] NaCl 0.9% 2020- No [id number] 8mL 8 mL, Uni vers (NS) 05-07 Epidural, ity of injection 8 15:30: 14[place]35 [place] dose, On Medical Fri Branch 05/07/21 at 1030, Routine iohexoL 2020- No [id number] 3mL Univer s (OMNIPAQUE 05-07 ity of 300-50 mL)) 15:15: 14:33 [place] injection 3 00 :00 Medical mL Branch lidocaine 2020- No [id number] 10mL Univ ers 1% (PF) 05-07 ity of (XYLOCAINE) 15:15: 14:34 [place] injection 00 :00 Medical 10 mL Branch triamcinolo 2020- No [id number] 80mg Un justice ne 05-07 ity of acetonide 15:15: 14:36 [place] (KENALOG) 00 :00 Medical injection Branch 80 mg triamcinolo 2020- No [id number] 80mg 80 mg, Univers ne 05-07 Epidural, ity of acetonide 15:15: 14:36 [place] ([place] 00 :00 dose, On Medica l injection Fri Branch 80 mg 05/07/21 at 1015, Routine lidocaine 2020- No [id number] 10mL 10 mL, Un justice 1% (PF) 05-07 Infiltrati ity o f (XYLOCAINE) 15:15: 14:34 on, ONCE, [place] injection 00 :00 1 dose, On Medi mary jo 10 mL Fri Branch 05/07/21 at 1015, Routine iohexoL 2020- No [id number] 3mL 3 mL, Unive rs (OMNIPAQUE 05-07 Injection, it y of 300-50 mL)) 15:15: 14:33 [place] 3 [place] :00 dose, On Medi m[place] jo mL Fri Branch 05/07/21 at 1015, Routine lactated 2020- No [id number] 500mL Univ ers ringers IV 05-07 ity of infusion 15:00: 19:52 [place] 500 mL 00 :04 Medical Branch gabapentin 2020-0 Yes [id number] 300mg Take 1 Univers 300 mg 8-17 capsule by ity of capsule 00:00: mouth 3 [place] 00 (three) Medical times Branch daily. gabapentin Yes [id number] 300mg Take 1 Univers 300 mg 8-17 capsule by ity of capsule 00:00: mouth 3 [place] 00 (three) Medical times Branch daily. gabapentin Yes [id number] 300mg Take 1 Univers 300 mg 8-17 capsule by ity of capsule 00:00: mouth 3 [place] 00 (three) Medical times Branch daily. Vital Signs Vital Name Observation Time Observation Value Comments Source Systolic blood 2021-05-07 15:05:00 122 [facility]Hg[facility] Diastolic blood 2021-05-07 15:05:00 86 mm[Hg] [facility] Heart rate 2021-05-07 15:05:00 75 /min [facility] Respiratory rate 2021-05-07 14:50:00 17 /min [facility] Body temperature 2021-05-07 13:39:00 36.67 Narda [facility] Body height 2021-05-07 13:39:00 160 cm [facility] Body weight 2021-05-07 13:39:00 90.719 kg [facility] BMI 2021-05-07 13:39:00 35.43 kg/m2 [facility] Oxygen saturation in 2021-05-07 13:39:00 98 /min [facility] Arterial blood by [facility] Pulse oximetry Branch Procedures Procedure Date / Time Performed Performing Clinician [facility] [place] TIME OR 2021-05-07 14:50:11 Bárbara Lucio y of [place] (NON-REPORTABLE) Medical Branch Encounters Start End Encounter Admission Attending Care Care Encounter Source Date/Time Date/Time Type Type Clinicians Facility Department ID 2021-05-10 2021-05-10 Telephone UZMA Lucio [id number] [facility] 00:00:00 00:00:00 Bárbara MUÑOZ [id number] Alayna DUNNE [id number] [facility] [id number] [facility] AND [address] [facility] 2021-05-07 2021-05-07 [facility] [id number] Univers 09:18:53 23:59:00 Encounter Bárbara WANDA [id number] ity juan Orellanaarnulfo DUNNE [id number] [facility] s [place] [id number] [facility] [address] [place] [facility] 2021-05-07 2021-05-07 Outpatient R BÁRBARA LUCIO [facility] [id number] Univers 09:30:00 09:30:00 [facility] [id number] [facility] 2021-05-07 2021-05-07 Outpatient R BÁRBARA LUCIO [facility] [id number] Univers 09:30:00 09:30:00 BÁRBARA LUCIO [facility] 2021-05-07 2021-05-07 Office [facility] [id number] Univers 08:23:15 08:53:15 Visit Bárbara MUÑOZ [id number] ity Harini DUNNE [id number] [facility] s [place] [id number] [facility] AND WILKINSON [address] [place] [facility] 2021-04-29 2021-04-29 Outpatient MICHELLE JAVIER [facility] [id number] Univers 11:45:00 11:45:00 [id number] [facility] 2021-04-09 2021-04-09 Outpatient R [facility] [id number] Univers 08:20:00 08:20:00 [id number] [facility] 2021-04-09 2021-04-09 Outpatient R LIAM [facility] [id number] Univers 08:20:00 08:20:00 CONSUELO [facility] 2021-03-30 2021-03-30 Outpatient MICHELLE JAVIER [facility] [id number] Univers 11:15:00 11:15:00 [facility] Results This patient has no known results.
[2021-12-12 12:21] LABS: Urine Blood Negative (Negative); Urine Glucose Negative (Negative); Urine Protein Negative (Negative); Urine pH 7.5 (5.0-7.0)
[2021-12-12 12:22] LABS: Absolute Lymphocytes (CBC) 1.8 K/uL (0.7-4.9); Hematocrit 36.7 % (36.0-45.0); Lymphocytes % 31.3 % (15.3-44.8); MPV 9.7 fL (7.6-11.3); RBC Red Blood Cell Count 4.12 M/uL (3.86-4.86)
[2021-12-12] MEDS ORDERED: NA CHLORIDE 0.9% 1,000 ML ONE (12:26)
[2021-12-12] MEDS ORDERED: KETOROLAC 30 MG/ML INJ ONE (12:26)
--- NOTE | 2021-12-12 13:14 | RAD REPORT ---
EXAM DESCRIPTION: CT - Head Brain Wo Cont - 12/12/2021 12:48 pm CLINICAL HISTORY: Right mastoid tenderness Headache, drowsiness COMPARISON: No comparisonsNo comparisonsCT HEAD SPINE CAP W CONTRAST dated 04/12/2013 TECHNIQUE: All CT scans are performed using dose optimization technique as appropriate and may inclu de automated exposure control or mA/KV adjustment according to patient size. FINDINGS: No intracranial hemorrhage, hydrocephalus or extra-axial fluid collection.No areas of brai n edema or evidence of midline shift. There is a 12 x 11 mm hyperdense mass along the anterior falx, new since 2012 comparative study. The paranasal sinuses and mastoids are clear. The calvarium is intact. IMPRESSION: No acute intracranial abnormality. 12 x 11 mm hyperdense mass along the anterior falx favored to represent a meningioma. Recommend nonem ergent MRI brain with contrast followup.
[2021-12-12 13:38] LABS: SARS-COV-2 RT PCR NEGATIVE (NEGATIVE)
--- NOTE | 2021-12-12 13:58 | ER ---
Nurse's Notes [facility] Name: Mera Perea Age: 36 yrs Sex: Female : 1985 Arrival Date: 12/12/2021 Time: 10:08 Bed 12 Private MD: Diagnosis: Vomiting;Viral infection, unspecified;Post aricular right ear pain Presentation: 12/12 10:28 Chief complaint: Patient states: nausea and vomiting since . Pt also c/o pain aa5 to right ear. Reports diarrhea today. Reports daughter tested positive for COVID-19. Coronavirus screen: chills, nausea, vomiting. Ebola Screen: No symptoms or risks identified at this time. Initial Sepsis Screen: Does the patient meet any 2 criteria? HR > 90 bpm. Does the patient have a suspected source of infection? No. Patient's initial sepsis screen is negative. Risk Assessment: Do you want to hurt yourself or someone else? Patient reports no desire to harm self or others. Onset of symptoms was November 2021. 10:28 Acuity: MERLENE 3 aa5 10:28 Method Of Arrival: Ambulatory aa5 Triage Assessment: 14:38 General: Appears in no apparent distress. Behavior is calm, cooperative. 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 - Social history:: Smoking status: Patient/guardian denies using tobacco. Screenin:37 Abuse screen: Denies threats or abuse. Denies injuries from another. Nutritional iw screening: No deficits noted. Tuberculosis screening: No symptoms or risk factors identified. Fall Risk None identified. Assessment: 11:30 General: Appears uncomfortable, Behavior is calm, cooperative. Pain: Complains of pain aa5 in right ear. Neuro: Level of Consciousness is awake, alert, obeys commands, Oriented to person, place, time, situation. Cardiovascular: Heart tones S1 S2 present Rhythm is regular. Respiratory: Airway is patent Respiratory effort is even, unlabored, Respiratory pattern is regular, symmetrical. GI: Abdomen is round non-distended, Bowel sounds present X 4 quads. Abd is soft and non tender X 4 quads. Reports diarrhea, nausea, vomiting. : No signs and/or symptoms were reported regarding the genitourinary system. EENT: Reports pain in right ear. Derm: Skin is pink, warm \T\ dry. Musculoskeletal: Range of motion: intact in all extremities. 12:30 Reassessment: Patient is alert, oriented x 3, equal unlabored respirations, skin aa5 warm/dry/pink. 14:37 Reassessment: Patient appears in no apparent distress at this time. Patient and/or iw family updated on plan of care and expected duration. Pain level reassessed. Patient is alert, oriented x 3, equal unlabored respirations, skin warm/dry/pink. Patient denies pain at this time. Patient states feeling better. Vital Signs: 10:28 BP 123 / 90; Pulse 94; Resp 18 S; Temp 98.4(O); Pulse Ox 100% on R/A; Weight 88.45 kg aa5 (R); Height 5 ft. 3 in. (160.02 cm) (R); 10:28 Body Mass Index 34.54 (88.45 kg, 160.02 cm) aa5 ED Course: 10:08 Patient arrived in ED. as 10:28 Arm band placed on. aa5 10:28 Patient has correct armband on for positive identification. aa5 10:30 Triage completed. aa5 11:52 Cortez Galeana MD is Attending Physician. kdr 12:15 Initial lab(s) drawn, by ct, sent to lab. Inserted saline lock: 20 gauge in right aa5 antecubital area, using aseptic technique. Blood collected. 12:28 Radha Long, RN is Primary Nurse. aa5 12:50 CT Head Brain wo Cont In Process Unspecified. EDMS 14:38 No provider procedures requiring assistance completed. IV discontinued, intact, iw bleeding controlled, No redness/swelling at site. Pressure dressing applied. Administered Medications: 12:28 Drug: Ketorolac 15 mg Route: IVP; Site: right antecubital; aa5 12:29 Drug: NS 0.9% 1000 ml Route: IV; Rate: 1 bolus; Site: right antecubital; aa5 Outcome: 13:57 Discharge ordered by . kdr 14:38 Discharged to home ambulatory. iw 14:38 Condition: good 14:38 Discharge instructions given to patient, Instructed on discharge instructions, follow up and referral plans. medication usage, Demonstrated understanding of instructions, follow-up care, medications. 14:38 Patient left the ED. iw Signatures: Dispatcher [employer] EDMS Cortez Galeana MD MD kdr Martinez, Amelia as Williams, Irene RN RN iw Radha Long RN RN aa5
--- NOTE | 2021-12-12 13:58 | EDPHYS ---
Physician Documentation [facility] Name: Mera Perea Age: 36 yrs Sex: Female : 1985 Arrival Date: 12/12/2021 Time: 10:08 Bed 12 Private MD: ED Physician Cortez Galeana HPI: 12/12 13:18 This 36 yrs old Female presents to ER via Ambulatory with complaints of Ear Pain, kdr Vomiting/Diarrhea. 13:18 The patient presents with Right mastoid tenderness. The complaints affect the right kdr base of the skull. Onset: The symptoms/episode began/occurred gradually. 13:19 Onset: The symptoms/episode began/occurred gradually, Started last . Modifying kdr factors: The symptoms are alleviated by nothing, the symptoms are aggravated by nothing. Associated signs and symptoms: The patient has no apparent associated signs or symptoms. The patient has not experienced similar symptoms in the past. The patient has not recently seen a physician. 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 - Social history:: Smoking status: Patient/guardian denies using tobacco. ROS: 13:19 Constitutional: Negative for fever, chills, and weight loss, Eyes: Negative for injury, kdr pain, redness, and discharge, Neck: Negative for injury, pain, and swelling, Cardiovascular: Negative for chest pain, palpitations, and edema, Respiratory: Negative for shortness of breath, cough, wheezing, and pleuritic chest pain, Back: Negative for injury and pain, : Negative for injury, bleeding, discharge, and swelling, MS/Extremity: Negative for injury and deformity, Neuro: Negative for headache, weakness, numbness, tingling, and seizure activity. Psych: Negative for depression, anxiety, suicide ideation, homicidal ideation, and hallucinations, Allergy/Immunology: Negative for hives, rash, and allergies, Endocrine: Negative for neck swelling, polydipsia, polyuria, polyphagia, and marked weight changes, Hematologic/Lymphatic: Negative for swollen nodes, abnormal bleeding, and unusual bruising. 13:19 Abdomen/GI: Positive for nausea and vomiting, nausea, Negative for diarrhea, constipation, abdominal cramps, abdominal distension, anorexia, dysphagia, hematemesis, black/tarry stool, rectal pain, rectal bleeding. Exam: 13:19 Constitutional: This is a well developed, well nourished patient who is awake, alert, kdr and in no acute distress. Head/Face: Normocephalic, atraumatic. Eyes: Pupils equal round and reactive to light, extra-ocular motions intact. Lids and lashes normal. Conjunctiva and sclera are non-icteric and not injected. Cornea within normal limits. Periorbital areas with no swelling, redness, or edema. Neck: Trachea midline, no thyromegaly or masses palpated, and no cervical lymphadenopathy. Supple, full range of motion without nuchal rigidity, or vertebral point tenderness. No Meningismus. Chest/axilla: Normal chest wall appearance and motion. Nontender with no deformity. No lesions are appreciated. Cardiovascular: Regular rate and rhythm with a normal S1 and S2. No gallops, murmurs, or rubs. Normal PMI, no JVD. No pulse deficits. Respiratory: Lungs have equal breath sounds bilaterally, clear to auscultation and percussion. No rales, rhonchi or wheezes noted. No increased work of breathing, no retractions or nasal flaring. 13:19 Head/face: Noted is tenderness, that is mild, of the right base of the skull. Vital Signs: 10:28 BP 123 / 90; Pulse 94; Resp 18 S; Temp 98.4(O); Pulse Ox 100% on R/A; Weight 88.45 kg aa5 (R); Height 5 ft. 3 in. (160.02 cm) (R); 10:28 Body Mass Index 34.54 (88.45 kg, 160.02 cm) aa5 MDM: 13:19 Data reviewed: vital signs, nurses notes, lab test result(s), radiologic studies. kdr Counseling: I had a detailed discussion with the patient and/or guardian regarding: the historical points, exam findings, and any diagnostic results supporting the discharge/admit diagnosis, lab results, radiology results. 13:57 Patient medically screened. [facility] 12/12 10:42 Order name: COVID-19/FLU A+B (Document "Date of Onset" if Symptomatic); Complete Time: pm1 13:49 12/12 12:09 Order name: CBC with Diff; Complete Time: 13:17 kdr 12/12 12:09 Order name: Chem 7; Complete Time: 13:17 kdr 12/12 12:09 Order name: CT Head Brain wo Cont; Complete Time: 13:17 kdr 12/12 12:21 Order name: Urine Dipstick-Ancillary; Complete Time: 13:17 EDMS 12/12 13:05 Order name: Urine --Ancillary (enter results); Complete Time: 13:49 eb 12/12 12:28 Order name: Urine Dipstick-Ancillary (obtain specimen); Complete Time: 12:28 aa5 12/12 12:28 Order name: Urine Test (obtain specimen); Complete Time: 12:28 aa5 Administered Medications: 12:28 Drug: Ketorolac 15 mg Route: IVP; Site: right antecubital; aa5 12:29 Drug: NS 0.9% 1000 ml Route: IV; Rate: 1 bolus; Site: right antecubital; aa5 Disposition Summary: 12/12/21 13:57 Discharge Ordered Location: Home kdr Problem: new kdr Symptoms: have improved kdr Condition: Stable kdr Diagnosis - Vomiting kdr - Viral infection, unspecified kdr - Post aricular right ear pain kdr Followup: kdr - With: Private Physician - When: 2 - 3 days - Reason: If symptoms return, Further diagnostic work-up, Recheck today's complaints, Continuance of care, Re-evaluation by your physician Discharge Instructions: - Discharge Summary Sheet kdr - Viral Respiratory Infection kdr - Viral Illness, Adult kdr Forms: - Medication Reconciliation Form kdr - Thank You Letter kdr - Work release form iw Signatures: Dispatcher [employer] Cortez Sierra MD MD kdr Radha Long, RN RN aa5
[2021-12-12 15:09] VITALS: BP 123/90; TEMP 98.4; O2SAT 100
== END 2021-12-12 14:38 | disposition home or self-care (01) ==
LOC: ER 10:05
DX: B34.9 Viral infection, unspecified (principal); H92.01 Otalgia, right ear; Z20.822 Contact with and (suspected) exposure to COVID-19
CPT/HCPCS: 85025; 80048; 36415; 81025; 81003; 0240U; 70450; 96374; 99284; J7030

== ENCOUNTER 2022-02-12 00:07 | Emergency (ER) | payer OTHER ==
--- NOTE | 2022-02-12 03:17 | ER ---
Nurse's Notes [facility] Name: Mera Perea Age: 36 yrs Sex: Female : 1985 Arrival Date: 02/12/2022 Time: 00:08 Bed 8 Private MD: Diagnosis: Contusion of unspecified part of head, initial encounter-12 MM meningioma, unchanged Presentation: 02/12 00:30 Chief complaint: Patient states: " my head started hurting real bad and I started vc1 feeling woosy, then about 30 minutes later I felt my head swelling, when I touched it my finger made a big indent.". Coronavirus screen: Vaccine status: Patient reports receiving the 2nd dose of the covid vaccine. Pfizer At this time, the client does not indicate any symptoms associated with coronavirus-19. Ebola Screen: No symptoms or risks identified at this time. Initial Sepsis Screen: Does the patient meet any 2 criteria? HR > 90 bpm. No. Patient's initial sepsis screen is negative. Does the patient have a suspected source of infection? No. Patient's initial sepsis screen is negative. Risk Assessment: Do you want to hurt yourself or someone else? Patient reports no desire to harm self or others. Onset of symptoms was February 12, 2022. 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 - Social history:: Smoking status: Patient reports the use of cigarette tobacco products, denies chronic smoking, but will smoke occasionally. - Family history:: not pertinent. Screenin:39 Abuse screen: Denies threats or abuse. Denies injuries from another. Nutritional lg3 screening: No deficits noted. Tuberculosis screening: Fall Risk None identified. Assessment: 01:39 General: Appears in no apparent distress. comfortable, Behavior is calm, cooperative. lg3 Pain: Complains of pain in right side of forehead Pain currently is 4 out of 10 on a pain scale. Neuro: No deficits noted. Level of Consciousness is awake, alert, obeys commands, Oriented to person, place, time, situation. Cardiovascular: No deficits noted. Denies chest pain, shortness of breath, Capillary refill < 3 seconds Clubbing of nail beds is absent JVD Patient's skin is warm and dry. Respiratory: No deficits noted. Airway is patent Trachea midline Respiratory effort is even, unlabored, Respiratory pattern is regular, symmetrical, Breath sounds are clear bilaterally. GI: No deficits noted. No signs and/or symptoms were reported involving the gastrointestinal system. Abdomen is round non-distended. : No deficits noted. No signs and/or symptoms were reported regarding the genitourinary system. EENT: No deficits noted. No signs and/or symptoms were reported regarding the EENT system. Derm: Skin is intact, is healthy with good turgor, Skin is dry, Skin temperature is warm swelling noted to right side of forehead. Musculoskeletal: No deficits noted. No signs and/or symptoms reported regarding the musculoskeletal system. Circulation, motion, and sensation intact. Range of motion: intact in all extremities. 02:50 Reassessment: Patient appears in no apparent distress at this time. No changes from lg3 previously documented assessment. Patient and/or family updated on plan of care and expected duration. Pain level reassessed. Patient is alert, oriented x 3, equal unlabored respirations, skin warm/dry/pink. Vital Signs: 00:30 Pulse 113; Resp 18; Temp 98; Pulse Ox 100% ; Weight 90.72 kg; Height 5 ft. 3 in. vc1 (160.02 cm); Pain 4/10; 00:35 BP 109 / 87; vc1 03:23 BP 116 / 88; Pulse 98; Resp 17 S; Pulse Ox 100% on R/A; lg3 00:30 Body Mass Index 35.43 (90.72 kg, 160.02 cm) vc1 [place]idan Coma Score: 01:03 Eye Response: spontaneous(4). Verbal Response: oriented(5). Motor Response: obeys kendal commands(6). Total: 15. ED Course: 00:08 Patient arrived in ED. am2 00:33 Triage completed. vc1 00:33 Arm band placed on left wrist. vc1 00:35 Mayito Diamond MD is Attending Physician. kendal 00:52 Gabi Allan, RN is Primary Nurse. lg3 01:40 CT Head Brain wo Cont In Process Unspecified. EDMS 01:42 Patient has correct armband on for positive identification. Bed in low position. Call lg3 light in reach. Side rails up X 1. Client placed on continuous cardiac and pulse oximetry monitoring. NIBP monitoring applied. Door closed. Noise minimized. Warm blanket given. 03:24 No provider procedures requiring assistance completed. Patient did not have IV access lg3 during this emergency room visit. Administered Medications: No medications were administered Medication: 03:24 VIS not applicable for this client. lg3 Outcome: 03:17 Discharge ordered by . kendal 04:14 Discharged to home ambulatory. ll3 04:14 Condition: stable 04:14 Discharge instructions given to patient, Instructed on discharge instructions, follow up and referral plans. medication usage, Demonstrated understanding of instructions, follow-up care, medications, Prescriptions given X 1. 04:15 Patient left the ED. ll3 Signatures: Dispatcher [employer] EDMN Mayito Diamond MD MD cha Moreno, Amanda am2 Gabi Allan, RN RN lg3 Hilda Dee, RN RN ll3 Gill Barry, RN RN vc1
--- NOTE | 2022-02-12 03:17 | EDPHYS ---
Physician Documentation [facility] Name: Mera Perea Age: 36 yrs Sex: Female : 1985 Arrival Date: 02/12/2022 Time: 00:08 Bed 8 Private MD: ED Physician Mayito Diamond HPI: 02/12 01:00 This 36 yrs old Female presents to ER via Ambulatory with complaints of Skin kendal Problem, Contusion - forehead. 01:00 The patient complains of pain to the forehead. The patient describes the headache as kendal constant. Onset: The symptoms/episode began/occurred 1 day(s) ago. Associated signs and symptoms: The patient has no apparent associated signs or symptoms. Severity of symptoms: At its worst the pain was mild, in the emergency department the pain is unchanged. Headache History: Denies prior headaches. The symptoms are alleviated by nothing. the symptoms are aggravated by nothing. The patient has not experienced similar symptoms in the past. 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 - Social history:: Smoking status: Patient reports the use of cigarette tobacco products, denies chronic smoking, but will smoke occasionally. - Family history:: not pertinent. ROS: 01:00 Constitutional: Negative for fever, chills, and weight loss, Eyes: Negative for injury, kendal pain, redness, and discharge, ENT: Negative for injury, pain, and discharge, Neck: Negative for injury, pain, and swelling, Cardiovascular: Negative for chest pain, palpitations, and edema, Respiratory: Negative for shortness of breath, cough, wheezing, and pleuritic chest pain, Abdomen/GI: Negative for abdominal pain, nausea, vomiting, diarrhea, and constipation, Back: Negative for injury and pain, : Negative for injury, bleeding, discharge, and swelling, MS/Extremity: Negative for injury and deformity, Neuro: Negative for headache, weakness, numbness, tingling, and seizure, Psych: Negative for depression, anxiety, suicide ideation, homicidal ideation, and hallucinations, Allergy/Immunology: Negative for hives, rash, and allergies, Endocrine: Negative for neck swelling, polydipsia, polyuria, polyphagia, and marked weight changes, Hematologic/Lymphatic: Negative for swollen nodes, abnormal bleeding, and unusual bruising. 01:00 MS/extremity: Positive for injury or acute deformity, pain, swelling, of the forehead. Exam: 01:00 Constitutional: This is a well developed, well nourished patient who is awake, alert, kendal and in no acute distress. Head/Face: Normocephalic, atraumatic. Eyes: Pupils equal round and reactive to light, extra-ocular motions intact. Lids and lashes normal. Conjunctiva and sclera are non-icteric and not injected. Cornea within normal limits. Periorbital areas with no swelling, redness, or edema. ENT: Nares patent. No nasal discharge, no septal abnormalities noted. Tympanic membranes are normal and external auditory canals are clear. Oropharynx with no redness, swelling, or masses, exudates, or evidence of obstruction, uvula midline. Mucous membranes moist. Neck: Trachea midline, no thyromegaly or masses palpated, and no cervical lymphadenopathy. Supple, full range of motion without nuchal rigidity, or vertebral point tenderness. No Meningismus. Chest/axilla: Normal chest wall appearance and motion. Nontender with no deformity. No lesions are appreciated. Cardiovascular: Regular rate and rhythm with a normal S1 and S2. No gallops, murmurs, or rubs. Normal PMI, no JVD. No pulse deficits. Respiratory: Lungs have equal breath sounds bilaterally, clear to auscultation and percussion. No rales, rhonchi or wheezes noted. No increased work of breathing, no retractions or nasal flaring. Abdomen/GI: Soft, non-tender, with normal bowel sounds. No distension or tympany. No guarding or rebound. No evidence of tenderness throughout. Back: No spinal tenderness. No costovertebral tenderness. Full range of motion. Skin: Warm, dry with normal turgor. Normal color with no rashes, no lesions, and no evidence of cellulitis. MS/ Extremity: Pulses equal, no cyanosis. Neurovascular intact. Full, normal range of motion. Neuro: Awake and alert, GCS 15, oriented to person, place, time, and situation. Cranial nerves II-XII grossly intact. Motor strength 5/5 in all extremities. Sensory grossly intact. Cerebellar exam normal. Normal gait. Psych: Awake, alert, with orientation to person, place and time. Behavior, mood, and affect are within normal limits. 01:00 Neuro: Orientation: is normal, appropriate for stated age, no acute changes, Mentation: is normal, appropriate for stated age, no acute changes, Memory: is normal, appropriate for stated age, no acute changes, Cranial nerves: grossly normal, is grossly normal based on the patient's age, no acute changes, Cerebellar function: is grossly normal, is grossly normal based on the patient's age, no acute changes, Motor: no acute changes, Sensation: is normal, no obvious gross deficits, appropriate Gait: not applicable seizure activity, is not displayed by the patient. Vital Signs: 00:30 Pulse 113; Resp 18; Temp 98; Pulse Ox 100% ; Weight 90.72 kg; Height 5 ft. 3 in. vc1 (160.02 cm); Pain 4/10; 00:35 BP 109 / 87; vc1 03:23 BP 116 / 88; Pulse 98; Resp 17 S; Pulse Ox 100% on R/A; lg3 00:30 Body Mass Index 35.43 (90.72 kg, 160.02 cm) vc1 Bibiana Coma Score: 01:03 Eye Response: spontaneous(4). Verbal Response: oriented(5). Motor Response: obeys [facility] commands(6). Total: 15. MDM: 00:35 Patient medically screened. [facility] 01:03 Differential diagnosis: intracerebral hemorrhage. Data reviewed: vital signs, nurses [facility] notes, radiologic studies, CT scan. Data interpreted: desk monitor: rate is 113 beats/min, rhythm is regular, Pulse oximetry: on room air is 100 %. Test interpretation: by ED physician or midlevel provider:. Counseling: I had a detailed discussion with the patient and/or guardian regarding: the historical points, exam findings, and any diagnostic results supporting the discharge/admit diagnosis, radiology results. 02/12 00:46 Order name: CT Head Brain wo Cont kendal 02/12 00:49 Order name: Ice pack; Complete Time: 01:39 kendal Administered Medications: No medications were administered Disposition Summary: 02/12/22 03:17 Discharge Ordered Location: Home kendal Problem: new kendal Symptoms: have improved kendal Condition: Stable kendal Diagnosis - Contusion of unspecified part of head, initial encounter - 12 MM meningioma, kendal unchanged Followup: kendal - With: Private Physician - When: 2 - 3 days - Reason: Recheck today's complaints, Continuance of care, Re-evaluation by your physician Discharge Instructions: - Discharge Summary Sheet kendal - Facial or Scalp Contusion kendal - Hematoma kendal - Hematoma, [id number] kendal Forms: - Medication Reconciliation Form kendal - Thank You Letter kendal - Antibiotic Education kendal - Prescription Opioid Use kendal Prescriptions: - Cephalexin 500 mg Oral Capsule - take 1 capsule by ORAL route every 6 hours for 7 days; 28 capsule; Refills: 0, kendal Product Selection Permitted Signatures: Dispatcher [employer] Mayito Sapp MD MD cha Calcote, Vanessa RN RN vc1
[2022-02-12 04:49] VITALS: TEMP 98; O2SAT 100
[2022-02-12 04:53] VITALS: BP 116/88
--- NOTE | 2022-02-12 20:01 | RAD REPORT ---
EXAM DESCRIPTION: CT - Head Brain Wo Cont - 02/12/2022 7:15 am CLINICAL HISTORY: 36 years Female Bone mass or bone pain, skull, no prior imaging TECHNIQUE: Axial noncontrast CT head with coronal and sagittal reformats. All CT scans at this [facility] ity use dose modulation, iterative reconstruction, and/or weight based dosing when appropriate to red uce radiation dose to as low as reasonably achievable. COMPARISON: 12/12/2021. FINDINGS: Brain: Redemonstration of 12 x 11 mm hyperdense anterior interhemispheric mass, unchanged from prior study. No intracranial hemorrhage or midline shift. No obvious large acute territorial inf arction. Ventricles: No hydrocephalus. Orbits: Unremarkable. Sinuses: Visualized portions are clear. Mastoid: Clear. Osseous: Unremarkable. Soft tissues: Unremarkable. IMPRESSION: Unchanged 12 mm anterior interhemispheric mass. 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 This can be further evaluated with MRI. Electronically signed by: Thierno Barros MD 02/12/2022 3:04 AM CDT Due to temporary technical issues with the PACS/Fluency reporting system, reports are being signed by the in house radiologists without review as a courtesy to insure prompt reporting. The interpreting radiologist is fully responsible for the content of the report.
== END 2022-02-12 04:15 | disposition home or self-care (01) ==
LOC: ER 00:07
DX: S00.83XA Contusion of other part of head, initial encounter (principal); D32.9 Benign neoplasm of meninges, unspecified; F32.A Depression, unspecified; F41.9 Anxiety disorder, unspecified; F17.210 Nicotine dependence, cigarettes, uncomplicated
CPT/HCPCS: 70450; 99283

== ENCOUNTER 2022-09-18 18:13 | Inpatient (IN) | payer OTHER ==
[2022-09-18 19:54] LABS: Absolute Lymphocytes (CBC) 2.2 K/uL (0.7-4.9); Hematocrit 39.4 % (36.0-45.0); Lymphocytes % 13.6 % (15.3-44.8); MCV 89.1 fL (80-100); MPV 8.6 fL (7.6-11.3); RBC Red Blood Cell Count 4.43 M/uL (3.86-4.86)
[2022-09-18 20:09] LABS: Potassium 3.5 mmol/L (3.5-5.1)
--- NOTE | 2022-09-18 20:35 | RAD REPORT ---
EXAM DESCRIPTION: CT - Soft Tissue Neck W/Contr - 09/18/2022 8:07 pm CLINICAL HISTORY: submental swelling COMPARISON: No comparisons TECHNIQUE: During dynamic enhancement using 100 milliliters nonionic IV contrast, axial 5 millimeter thick images of the neck were obtained. All CT scans are performed using dose optimization technique as appropriate and may include automated exposure control or mA/KV adjustment according to patient size. FINDINGS: Intracranial portion the examination is unremarkable. No globe or orbital content abnormal ity. Mastoid air cells and paranasal sinuses are clear. No pharyngeal mucosal mass or asymmetry. Tonsils and tongue base show no suspicious findings. The epi glottis and laryngeal structures are normal. Thyroid, submandibular and parotid gland tissues are unremarkable. In the anterior right submandibular fatty tissues, superficial to the platysma, there is edematous/ i nflammatory stranding. A few small reactive lymph nodes are seen deep to the platysma in the submandi bular region. These are similar right versus left. No air or foreign body seen in the soft tissues. N o acute bone findings seen. IMPRESSION: Nonspecific edematous/ inflammatory stranding in the superficial subcutaneous fatty tiss ues anterior right submandibular region, superficial to the platysma. No abscess, air or foreign body in the area of concern.
[2022-09-18] MEDS ORDERED: ONDANSETRON 4 MG/2 ML VIAL ONE (20:57)
[2022-09-18] MEDS ORDERED: NA CHLORIDE 0.9% 1,000 ML ONE (20:57)
[2022-09-18] MEDS ORDERED: FENTANYL CITR 100 MCG/2 ML ONE (20:58)
--- NOTE | 2022-09-18 21:03 | ER ---
Nurse's Notes [facility] Name: Mera Perea Age: 37 yrs Sex: Female : 1985 Arrival Date: 09/18/2022 Time: 18:26 Bed 18 Private MD: Diagnosis: Cellulitis of face-submental;Sepsis, unspecified organism Presentation: 09/18 18:27 Chief complaint: Patient states: Chin swelling for 1 day. Just R of center. + fever at ll1 home. + nausea. Coronavirus screen: Client denies travel out of the [place] in the last 14 days. At this time, the client does not indicate any symptoms associated with coronavirus-19. Ebola Screen: Patient denies travel to an Ebola-affected area in the 21 days before illness onset. Acute neurological deficit: none identified. Initial Sepsis Screen: Does the patient meet any 2 criteria? No. Patient's initial sepsis screen is negative. Does the patient have a suspected source of infection? Yes: Other: throat pain/swelling. Risk Assessment: Do you want to hurt yourself or someone else? Patient reports no desire to harm self or others. Onset of symptoms was September 18, 2022. 18:27 Method Of Arrival: Ambulatory ll1 18:27 Acuity: MERLENE 2 ll1 Historical: - Allergies: 18:29 No Known Drug Allergies; ll1 - PMHx: 18:29 Anxiety; Depression; mass on brain; ll1 - PSHx: 18:29 tubal ligation; ll1 - Immunization history:: Client reports receiving the 2nd dose of the Covid vaccine. - Social history:: Smoking status: Patient reports the use of cigarette tobacco products, denies chronic smoking, but will smoke occasionally. Screenin:01 [facility] ED Fall Risk Assessment (Adult) History of falling in the last 3 months, lg3 including since admission No falls in past 3 months (0 pts). Abuse screen: Denies threats or abuse. Denies injuries from another. Nutritional screening: No deficits noted. Tuberculosis screening: No symptoms or risk factors identified. Assessment: 21:01 General: Appears in no apparent distress. uncomfortable, Behavior is calm, cooperative. lg3 Pain: Complains of pain in face. Neuro: No deficits noted. Maria Agitation-Sedation Scale (RASS): 0 - Alert and Calm Level of Consciousness is awake, alert, obeys commands, Oriented to person, place, time, situation. Cardiovascular: No deficits noted. Denies chest pain, shortness of breath, Capillary refill < 3 seconds Clubbing of nail beds is absent JVD is absent Patient's skin is warm and dry. Respiratory: No deficits noted. Airway is patent Trachea midline Respiratory effort is even, unlabored, Respiratory pattern is regular, symmetrical. GI: No deficits noted. No signs and/or symptoms were reported involving the gastrointestinal system. Abdomen is round non-distended. : No deficits noted. No signs and/or symptoms were reported regarding the genitourinary system. EENT: No deficits noted. Derm: Skin is intact, is healthy with good turgor, Skin is dry, Skin is normal, swelling and redness noted to chin. Musculoskeletal: No deficits noted. No signs and/or symptoms reported regarding the musculoskeletal system. Circulation, motion, and sensation intact. Range of motion: intact in all extremities. 22:48 Reassessment: Patient appears in no apparent distress at this time. No changes from lg3 previously documented assessment. Patient and/or family updated on plan of care and expected duration. Pain level reassessed. Patient is alert, oriented x 3, equal unlabored respirations, skin warm/dry/pink. Vital Signs: 18:27 BP 130 / 86; Pulse 130; Resp 20; Temp 99.2; Pulse Ox 100% ; Weight 88.45 kg; Height 5 ll1 ft. 3 in. (160.02 cm); Pain 8/10; 21:11 BP 124 / 86; Pulse 106; Resp 20; Temp 98.2; Pulse Ox 100% on R/A; Weight 88.45 kg; rv1 Height 5 ft. 3 in. (160.02 cm); Pain 0/10; 02/06 03:34 BP 188 / 99; Pulse 100; Resp 21; Pulse Ox 100% on CPAP; ke1 09/18 21:11 Body Mass Index 34.54 (88.45 kg, 160.02 cm) rv1 ED Course: 09/18 18:26 Patient arrived in ED. as 18:29 Triage completed. ll1 18:29 Mayito Yousif PA is PHCP. cp 18:29 Cortez Galeana MD is Attending Physician. cp 18:29 Arm band placed on. ll1 19:20 Mayito Diamond MD is Attending Physician. cp 19:51 Blood Culture Adult (2) Sent. ds4 19:51 Lactate w/ 2H reflex if indic. Sent. ds4 19:51 Basic Metabolic Panel Sent. ds4 19:51 CBC with Diff Sent. ds4 19:51 Inserted saline lock: 22 gauge in right forearm, using aseptic technique. Blood ds4 collected. 20:09 CT Soft Tissue Neck W/contr In Process Unspecified. EDMS 21:01 Vel Thakkar MD is Hospitalizing Provider. cp 21:01 Patient has correct armband on for positive identification. Placed in gown. Bed in low lg3 position. Call light in reach. Side rails up X 1. Client placed on continuous cardiac and pulse oximetry monitoring. NIBP monitoring applied. produce team lead on. Door closed. Noise minimized. Warm blanket given. Family accompanied patient. 22:47 No provider procedures requiring assistance completed. Patient admitted, IV remains in lg3 place. intact, No redness/swelling at site. 23:30 Aria Mcfarlane, MANUELITO is Primary Nurse. ke1 Administered Medications: 21:00 Drug: NS 0.9% 1000 ml Route: IV; Rate: 1 bolus; Site: right antecubital; lg3 22:48 Follow up: IV Status: Completed infusion; IV Intake: 1000ml lg3 21:01 Drug: Zofran (Ondansetron) 4 mg Route: IVP; Site: right antecubital; lg3 22:48 Follow up: Response: No adverse reaction lg3 21:01 Drug: fentaNYL (PF) 25 mcg Route: IVP; Site: right antecubital; lg3 22:48 Follow up: Response: No adverse reaction lg3 21:12 Drug: vancoMYCIN 1 grams Route: IVPB; Infused Over: 2 hrs; Site: right antecubital; lg3 22:48 Follow up: Response: No adverse reaction; IV Status: Completed infusion; IV Intake: lg3 250ml 21:12 Drug: Cefepime 1 grams Route: IVPB; Rate: 200 ml/hr; Infused Over: 30 mins; Site: right lg3 antecubital; 22:48 Follow up: Response: No adverse reaction; IV Status: Completed infusion; IV Intake: lg3 100ml Medication: 21:01 VIS not applicable for this client. lg3 Intake: 22:48 IV: 100ml; Total: 100ml. lg3 22:48 IV: 250ml; Total: 350ml. lg3 22:48 IV: 1000ml; Total: 1350ml. lg3 Outcome: 21:02 Decision to Hospitalize by Provider. cp 22:47 Admitted to ER Hold. Please see [facility] for further documentation. lg3 22:47 Condition: stable 22:47 Instructed on the need for admit, Demonstrated understanding of instructions. 09/19 14:03 Patient left the ED. ss Signatures: Dispatcher [employer] Leilani Owusu Shelby, MANUELITO RN ss David Melendrez ds4 Mayito Yousif PA PA cp Gabi Allan RN RN lg3 Britney Daigle RN RN ll1 Aria Mcfarlane RN RN ke1 Mary Aburto rv1 Corrections: (The following items were deleted from the chart) 09/18 18:37 18:27 Acuity: MERLENE 3 ll1 ll1 21:14 21:01 Derm: No deficits noted. Skin is intact, is healthy with good turgor, Skin is lg3 dry, Skin is normal, lg3
--- NOTE | 2022-09-18 21:03 | EDPHYS ---
Physician Documentation [facility] Name: Mera Perea Age: 37 yrs Sex: Female : 1985 Arrival Date: 09/18/2022 Time: 18:26 Bed 18 Private MD: ED Physician Mayito Diamond HPI: 09/18 18:45 This 37 yrs old Female presents to ER via Ambulatory with complaints of Neck Swelling. cp 18:45 The patient or guardian complains of pain, that is acute, swelling, tenderness. cp 18:45 The symptoms are located under jaw. Onset: The symptoms/episode began/occurred this cp morning. Context: The neck injury/problem resulted from from unknown cause. Associated signs and symptoms: Pertinent negatives: fever, vomiting, difficulty swallowing. Severity of symptoms: in the emergency department the symptoms are unchanged, despite home interventions. Historical: - Allergies: 18:29 No Known Drug Allergies; ll1 - PMHx: 18:29 Anxiety; Depression; mass on brain; ll1 - PSHx: 18:29 tubal ligation; ll1 - Immunization history:: Client reports receiving the 2nd dose of the Covid vaccine. - Social history:: Smoking status: Patient reports the use of cigarette tobacco products, denies chronic smoking, but will smoke occasionally. ROS: 18:50 Eyes: Negative for injury, pain, redness, and discharge. cp 18:50 Constitutional: Negative for body aches, fever, poor PO intake. 18:50 ENT: Negative for drainage from ear(s), ear pain, sore throat, difficulty swallowing, difficulty handling secretions. 18:50 Neck: Positive for swelling, tenderness, of the under jaw. 18:50 Cardiovascular: Negative for chest pain, palpitations. 18:50 Respiratory: Negative for cough, shortness of breath, wheezing. 18:50 Abdomen/GI: Negative for abdominal pain, nausea, vomiting, and diarrhea. 18:50 Neuro: Negative for altered mental status, dizziness, headache, numbness, syncope, weakness. 18:50 All other systems are negative. Exam: 18:55 Constitutional: The patient appears in no acute distress, alert, awake, cp non-diaphoretic, non-toxic, well developed, well nourished. 18:55 Head/face: Noted is erythema, that is mild, of the submandibular, swelling, that is cp moderate, of the submandibular, tenderness, that is moderate, of the submandibular. 18:55 Eyes: Periorbital structures: appear normal, Pupils: equal, round, and reactive to light and accomodation, Extraocular movements: intact throughout, Conjunctiva: normal, no exudate, no injection, Sclera: no appreciated abnormality, Lids and lashes: appear normal, bilaterally. 18:55 ENT: External ear(s): are unremarkable, Ear canal(s): are normal, TM's: dullness, bilaterally, Nose: is normal, Mouth: Lips: moist, Oral mucosa: pink and intact, moist, Posterior pharynx: Airway: no evidence of obstruction, patent, Tonsils: are normal in appearance, swelling, is not appreciated, erythema, is not appreciated, Voice: is normal. 18:55 Neck: ROM/movement: is normal, is supple, without pain, no range of motions limitations, no meningismus. 18:55 Chest/axilla: Inspection: normal. 18:55 Cardiovascular: Rate: tachycardic, Rhythm: regular. 18:55 Respiratory: the patient does not display signs of respiratory distress, Respirations: normal, no use of accessory muscles, no retractions, labored breathing, is not present, Breath sounds: are clear throughout, no decreased breath sounds, no stridor, no wheezing. 18:55 Abdomen/GI: Inspection: abdomen appears normal, Palpation: abdomen is soft and non-tender. 18:55 Back: pain, is absent, ROM is normal. 18:55 Neuro: Orientation: to person, place \T\ time. Mentation: is normal. 19:38 ECG was reviewed by the Attending Physician. cp Vital Signs: 18:27 BP 130 / 86; Pulse 130; Resp 20; Temp 99.2; Pulse Ox 100% ; Weight 88.45 kg; Height 5 ll1 ft. 3 in. (160.02 cm); Pain 8/10; 21:11 BP 124 / 86; Pulse 106; Resp 20; Temp 98.2; Pulse Ox 100% on R/A; Weight 88.45 kg; rv1 Height 5 ft. 3 in. (160.02 cm); Pain 0/10; 09/19 03:34 BP 188 / 99; Pulse 100; Resp 21; Pulse Ox 100% on CPAP; ke1 09/18 21:11 Body Mass Index 34.54 (88.45 kg, 160.02 cm) rv1 MDM: 09/18 19:00 Differential diagnosis: abscess, cellulitis, Scott's angina, sepsis. cp 19:02 Patient medically screened. cp 20:55 ED course: consult with DR Awad, ENT, will consult on patient and see in hospital cp tomorrow. Request admission to hospitalist services. 20:55 Data reviewed: vital signs, nurses notes, lab test result(s), EKG, radiologic studies, cp CT scan. 21:00 Consideration of Admission/Observation Patient was admitted/placed on observation. cp 21:00 Management of patient was discussed with the following: Hospitalist: Marito Neely NP. I cp considered the following discharge prescriptions or medication management in the emergency department Medications were administered in the Emergency Department. See MAR. Independent interpretation of the following test(s) in the Emergency Department EKG: See my EKG interpretation above. Response to treatment: the patient's symptoms have mildly improved after treatment, and as a result, I will admit patient. 02 18:41 Order name: Basic Metabolic Panel; Complete Time: 20:34 09/18 20:34 Interpretation: Normal except: NA 135. 09/18 18:41 Order name: CBC with Diff; Complete Time: 20:34 02 20:34 Interpretation: Normal except: WBC 16.40; RDW 15.7; VENKAT% 80.6; LYM% 13.6; NEUT A 13.3. 09/18 18:41 Order name: Lactate w/ 2H reflex if indic.; Complete Time: 20:34 09/18 20:44 Interpretation: Reviewed. 02 18:41 Order name: Blood Culture Adult (2) cp 09/18 21:21 Order name: SARS RAPID bb 02 18:41 Order name: CT Soft Tissue Neck W/contr; Complete Time: 20:41 cp 09/19 05:38 Order name: CBC with Automated Diff EDMS 09/19 05:40 Order name: Basic Metabolic Panel EDMS 09/18 18:41 Order name: EKG; Complete Time: 18:42 cp 09/18 18:41 Order name: Cardiac monitoring; Complete Time: 20:36 cp 09/18 18:41 Order name: EKG - Nurse/Tech; Complete Time: 19:51 cp 09/18 18:41 Order name: IV Saline Lock; Complete Time: 19:51 cp 09/18 18:41 Order name: Labs collected and sent; Complete Time: 19:51 cp 09/18 18:41 Order name: O2 Per Protocol; Complete Time: 19:51 cp 09/18 18:41 Order name: O2 Sat Monitoring; Complete Time: 19:51 cp EC:38 Rate is 108 beats/min. Rhythm is regular. FL interval is normal. QRS interval is cp normal. QT interval is normal. Interpreted by me. Reviewed by me. Administered Medications: 21:00 Drug: NS 0.9% 1000 ml Route: IV; Rate: 1 bolus; Site: right antecubital; lg3 22:48 Follow up: IV Status: Completed infusion; IV Intake: 1000ml lg3 21:01 Drug: Zofran (Ondansetron) 4 mg Route: IVP; Site: right antecubital; lg3 22:48 Follow up: Response: No adverse reaction lg3 21:01 Drug: fentaNYL (PF) 25 mcg Route: IVP; Site: right antecubital; lg3 22:48 Follow up: Response: No adverse reaction lg3 21:12 Drug: vancoMYCIN 1 grams Route: IVPB; Infused Over: 2 hrs; Site: right antecubital; lg3 22:48 Follow up: Response: No adverse reaction; IV Status: Completed infusion; IV Intake: lg3 250ml 21:12 Drug: Cefepime 1 grams Route: IVPB; Rate: 200 ml/hr; Infused Over: 30 mins; Site: right lg3 antecubital; 22:48 Follow up: Response: No adverse reaction; IV Status: Completed infusion; IV Intake: lg3 100ml Disposition Summary: 09/18/22 21:02 Hospitalization Ordered Hospitalization Status: Inpatient Admission cp Provider: Vel Thakkar cp Condition: Stable cp Problem: new cp Symptoms: are unchanged cp Bed/Room Type: Standard cp Location: Telemetry/MedSurg (Inpatient)(09/19/22 12:35) ss Room Assignment: 425(09/19/22 12:35) ss Diagnosis - Cellulitis of face - submental cp - Sepsis, unspecified organism cp Forms: - Medication Reconciliation Form cp - SBAR form cp Signatures: Dispatcher [employer] Tanya Hickey, RN RN ss Mayito Yousif PA PA cp Carly Jean-Baptiste, RN RN Gabi Allan, RN RN lg3 Britney Daigle RN RN ll1 Corrections: (The following items were deleted from the chart) 22:46 21:02 Telemetry/MedSurg (Inpatient) cp 22:46 21:02 cp 09/19 12:35 09/18 22:46 [facility] [place] ER HOLD cg 09/19 12:35 02 22:46 ERHOLD- cg 09/20 12:46 02 18:50 Constitutional: Negative for body aches, fever, poor PO intake, cp cp 09/20 12:46 02 18:50 Eyes: Negative for injury, pain, redness, and discharge, cp cp 09/20 12:46 02 18:50 ENT: Negative for drainage from ear(s), ear pain, sore throat, difficulty cp swallowing, difficulty handling secretions, cp 09/20 12:46 09/19 18:50 Neck: Positive for swelling, tenderness, of the under jaw, cp cp 09/20 12:46 02 18:50 Cardiovascular: Negative for chest pain, palpitations, cp cp 09/20 12:46 02 18:50 Respiratory: Negative for cough, shortness of breath, wheezing, cp cp 09/20 12:46 02 18:50 Abdomen/GI: Negative for abdominal pain, nausea, vomiting, and diarrhea, cp cp 09/20 12:46 02 18:50 Neuro: Negative for altered mental status, dizziness, headache, numbness, cp syncope, weakness, cp 09/20 12:46 02 18:50 All other systems are negative, cp cp
[2022-09-18] MEDS ORDERED: VANCOMYCIN 1 GM/VIAL ONE (21:09)
[2022-09-18] MEDS ORDERED: CEFEPIME 1 GM/VIAL ONE (21:09)
[2022-09-18] MEDS ORDERED: NA CHLORIDE 0.9% 50 ML ONE (21:09)
[2022-09-18] MEDS ORDERED: NA CHLORIDE 0.9% 250 ML ONE (21:10)
[2022-09-18 22:06] LABS: SARS-CoV-2 Antigen Rapid Res Negative (Negative)
--- NOTE | 2022-09-18 22:18 | P.HP ---
Certification for Inpatient Patient admitted to: Inpatient With expected LOS: >2 Midnights Patient will require the following post-hospital care: None Practitioner: I am a practitioner with admitting privileges, knowledge of patient current condition, hospital course, and medical plan of care. Services: Services provided to patient in accordance with Admission requirements found in Title 42 Section 412.3 of the Code of Federal Regulations Patient History Date of Service: 09/18/22 Reason for admission: Sepsis, submandibular cellulitis History of Present Illness: 37-year-old otherwise healthy female presents the emergency department with concern of infection on her neck. She reports that she woke up around midnight last night and on the way to the bathroom felt swelling in her jaw/neck, began running fever today. She was evaluated in the emergency department her labs were significant for leukocytosis with a white blood cell of 16.4 she was i nitially tachycardic to [address] soft tissue of the neck was performed which revealed nonspecific edematous/inflammatory stranding in the superficial subcutaneous fatty tissues anterior right submandibular region, superficial to the platysma. No abscess, air or foreign body in the area of concern. ED consulted with ENT who recommended admission to hospital service, IV antibiotics. After further discussion with patient she did have a recent dental procedure, she reports that a crown had cracked and approximate 2 weeks ago she had some sort of filling placed. Patient is without sublingual edema, trismus, changes in her voice although there is significant erythema, swelling in the submandibular area. Will admit for further evaluation and management. Allergies No Known Drug Allergies Allergy (Unverified 11/19/14 12:03) Unknown NKDA Allergy (Uncoded 01/14/14 07:39) Unknown No Known Isaías Allergy (Uncoded 03/16/17 12:52) Unknown No Known Allergies Allergy (Uncoded 07/21/17 17:00) Unknown - Past Medical/Surgical History -: None -: Tubal ligation Psychosocial/ Personal History: Patient lives at home with family - Family History Family History: Reviewed- Non-Contributory - Social History Smoking Status: Current some day smoker Alcohol use: Yes CD- Drugs: No Caffeine use: Yes Place of Residence: Home Review of Systems 10-point ROS is otherwise unremarkable General: Fever, Chills ENT: Other (Neck pain/swelling), As per HPI Physical Examination - Physical Exam General: Alert, In no apparent distress, Oriented x3 HEENT: Atraumatic, PERRLA, Mucous membr. moist/pink, Other (No sublingual edema, no trismus, no voice changes), EOMI, Sclerae nonicteric Neck: Supple, 2+ carotid pulse no bruit, No LAD, Without JVD or thyroid abnormality Respiratory: Clear to auscultation bilaterally, Normal air movement Cardiovascular: Regular rate/rhythm, Normal S1 S2 Gastrointestinal: Normal bowel sounds, No tenderness Musculoskeletal: No tenderness Integumentary: Other (Erythema, swelling in the submandibular area) Neurological: Normal gait, Normal speech, Normal strength at 5/5 x4 extr, Normal tone, Normal affect Lymphatics: No axilla or inguinal lymphadenopathy - Studies Laboratory Data (last 24 hrs) 09/18/22 19:40: WBC 16.40 H, Hgb 12.9, Hct 39.4, Plt Count 297 09/18/22 19:40: Sodium 135 L, Potassium 3.5, BUN 15, Creatinine 0.65, Glucose 95 Assessment and Plan - Plan Assessment: Sepsis secondary to submandibular cellulitis Plan: Sepsis secondary to submandibular cellulitis Continue antibioticsUnasyn. ENT consulted. No evidence of extension through platysma, deeper tissues. No sublingual edema, trismus or changes in voice at this time. Continue to biotics, as needed pain medications, monitor closely for worsening. Appreciate further input from ENT. DVT PPX: Lovenox Code status: Full Discharge Plan: Home Plan to discharge in: 72 Hours - Advance Directives Does patient have a Living Will: No Does patient have a Durable POA for Healthcare: No - Code Status/Comfort Care Code Status Assessed: Yes (Full code) Critical Care: No Time Spent Managing Pts Care (In Minutes): 55
[2022-09-18] MEDS: Ringers Lactate 1,000 ML IV SCH (23:33)
[2022-09-18] MEDS ORDERED: ONDANSETRON 4 MG/2 ML VIAL IV PRN (23:33)
[2022-09-18] MEDS ORDERED: ACETAMINOPHEN 500 MG TAB PO PRN (23:33)
[2022-09-18] MEDS ORDERED: Ringers Lactate 1,000 ML IV ONE (23:43)
[2022-09-18] MEDS: HYDROCODONE/APAP 5/325 MG TAB PO PRN (23:48)
[2022-09-18] MEDS ORDERED: HYDROCODONE/APAP 5/325 MG TAB ONE (23:49)
[2022-09-19] MEDS ORDERED: AMPICILLIN/SULBACTAM 3GM/VIAL ONE ×3 (01:08→11:21)
[2022-09-19] MEDS ORDERED: NA CHLORIDE 0.9% 100 ML ONE ×3 (01:09→11:22)
[2022-09-19] MEDS: MORPHINE 2 MG/ML SYR IV PRN ×4 (03:48→20:40)
[2022-09-19 05:36] LABS: Hematocrit 35.4 % (36.0-45.0); Lymphocytes % 16.7 % (15.3-44.8); MCV 90.6 fL (80-100); MPV 8.9 fL (7.6-11.3); Potassium 3.8 mmol/L (3.5-5.1); RBC Red Blood Cell Count 3.91 M/uL (3.86-4.86)
[2022-09-19] MEDS: AMPICILLIN/SULBACT 3 GM in NA CHLORIDE 0.9% 100 ML IVPB SCH ×5 (06:00→17:00)
[2022-09-19] MEDS ORDERED: HYDROCODONE/APAP 5/325 MG TAB ONE ×2 (06:08→11:21)
[2022-09-19] MEDS: HYDROCODONE/APAP 5/325 MG TAB PO PRN ×4 (06:12→22:50)
[2022-09-19] MEDS: ENOXAPARIN 40 MG/0.4 ML SQ SCH (09:00)
[2022-09-19] MEDS ORDERED: MORPHINE 2 MG/ML SYR ONE (09:01)
[2022-09-19] MEDS ORDERED: ENOXAPARIN 40 MG/0.4 ML SQ ONE (09:02)
[2022-09-19] MEDS ORDERED: POTASSIUM 25 MEQ EFFERV TAB ONE (09:57)
[2022-09-19] MEDS ORDERED: POTASSIUM 25 MEQ EFFERV TAB PO ONE (10:00)
[2022-09-19] MEDS ORDERED: ACETAMINOPHEN 500 MG TAB ONE (11:21)
[2022-09-19] MEDS ORDERED: Ringers Lactate 1,000 ML IV ONE (11:22)
[2022-09-19] MEDS: Ringers Lactate 1,000 ML IV SCH (11:30)
[2022-09-19] MEDS ORDERED: LIDOCAINE 1% W/EPI 1:100,000 50 ML MDV ONE (13:15)
[2022-09-19 22:42] VITALS: O2SAT 98
--- NOTE | 2022-09-19 23:05 | CON ---
Date of Consultation: 09/19/2022 Chief Complaint: Right upper neck swelling. History Of Present Illness: Patient is a 37-year-old female, who presents to the emergency room approximately Monday morning, around midnight with the concern of an infection on her neck. She states that she woke up and on the way to the bathroom, she felt swelling in her right upper jaw and neck and she saw small pustule in the area of the right submental neck. She stated it was mild initially, but then she started running fever and the swelling was worsening. Thus, she presented to the emergency room and was placed on IV antibiotics, specifically Unasyn and I was consulted for further evaluation. Upon arrival to bedside, patient states that the swelling has worsened and the area of redness has enlarged. She reports moderate right submental neck pain and swelling with erythema of the skin overlying the swelling. She denies odynophagia, dysphagia, dyspnea, or other ENT complaints today. Past Medical History: None. Past Surgical History: Positive for tubal ligation. Social History: Current social smoker and occasional alcohol use, but no illicit drugs. Allergies: NO KNOWN DRUG ALLERGIES. Review of Systems: Head: Negative for headache or trauma. Ears: Negative for otalgia, otorrhea, or hearing loss. Face: Negative for swelling or sinus pain or pressure. Nose: Negative for rhinorrhea, nasal congestion, postnasal drip. Oral cavity: Negative for sore throat, odynophagia, dysphagia. Neck: Positive for significant swelling in the right submental area with erythema and evidence of an ulcer/pustule and pain is moderate degree of severity. Respiratory: Negative for dyspnea, chest pain. Physical Examination: Vital Signs: Stable. General: Awake, alert, and oriented. No apparent distress. She is oriented x3. Head: Atraumatic, normocephalic. Eyes: PERRLA/EOMI. Ears: Bilateral external auditory canals patent. Tympanic membranes intact. No evidence of effusion. Nose: Midline septum. Bilateral nasal cavities are patent. No evidence of rhinorrhea or exudate. Throat and Oral Cavity: Moist oral mucosa. Midline uvula. No evidence of floor of mouth swelling. Positive for abnormal dentition. Neck: Approximately 4-5 cm erythematous area of the right submental neck and indurated area with questionable fluctuance noted, which measured approximately 3-4 cm and a central pustule, which resembles possibly an insect bite. Respiratory: No evidence of chest retractions. Patient is having normal air movement. Lymphatics: No evidence of lymphadenopathy or thyromegaly palpated. Diagnostic Data: CT scan of soft tissue neck with contrast demonstrated fat stranding with evidence of right submental neck cellulitis, but no discernible abscess. White blood cell count 16.40, hemoglobin 12.9, hematocrit 39.4, platelet count is 297. Procedure: After obtaining written consent, patient was placed into a sitting position. I infiltrated approximately 5 mL 1% lidocaine with 1:100,000 epinephrine over the area of the insect bite. I had high suspicion for an abscess in this location developing since she is not improved on Unasyn IV antibiotics. I made incisions through the epidermis down to the subplatysmal level with a #15 blade scalpel and a mixture of bloody and mucoid secretions were expressed from the wound. I irrigated with saline and then inserted quarter-inch iodoform strip into the wound cavity and then placed a compressive dressing with 4 x 4 gauze. She tolerated the procedure well. I obtained a Gram stain, anaerobic and aerobic cultures. Impression: Right submental neck abscess and cellulitis, status post incision and drainage. Recommendations: 1. Continue IV antibiotics as prescribed and then we will await culture and sensitivity information. 2. May discharge home on clindamycin 300 mg p.o. t.i.d. and then we will adjust antibiotics as needed. 3. Card given for followup in my office in 3-5 days for packing removal and wound check. Thank you for this most interesting consultation. DANAE/POR Voice ID: [id number] Report ID: [id number] VARSHA
--- NOTE | 2022-09-19 23:59 | P.PN ---
Date of Service: 09/19/22 Subjective: ENT evaluated patient this morning performed bedside I&D with packing ROS: 10 point ROS as noted above, otherwise negative Physical exam GEN: Alert, oriented, NAD HEENT: Normal conjunctiva, sclera anicteric CV: Regular rate and rhythm, no edema Pulm: Nonlabored respirations on room air Integumentary: s/p I&D, dressing in place Neuro: Normal speech, normal affect Problem List Sepsis secondary to submandibular cellulitis continue empiric antibiotics ENT consulted s/p I&D at bedside this morning PRN pain meds dressing as instructed by c/d/i VTE: lovenox Code: full Dispo: home, likely tomorrow Time Spent Managing Pts Care (In Minutes): 35
[2022-09-20] MEDS: AMPICILLIN/SULBACT 3 GM in NA CHLORIDE 0.9% 100 ML IVPB SCH ×2 (00:34→05:48)
[2022-09-20 01:15] VITALS: BMI 34.2
[2022-09-20] MEDS: Ringers Lactate 1,000 ML IV SCH (02:06)
[2022-09-20] MEDS: MORPHINE 2 MG/ML SYR IV PRN ×2 (02:07→08:55)
[2022-09-20] MEDS ORDERED: HYDROMORPHONE HCL 0.5 MG/0.5 ML INJ IV ONE (03:06)
[2022-09-20 04:02] LABS: Absolute Lymphocytes (CBC) 1.7 K/uL (0.7-4.9); Hematocrit 33.1 % (36.0-45.0); Lymphocytes % 18.3 % (15.3-44.8); MCV 89.4 fL (80-100); MPV 9.1 fL (7.6-11.3)
[2022-09-20 04:04] LABS: Potassium 3.4 mmol/L (3.5-5.1)
[2022-09-20] MEDS ORDERED: POTASSIUM CL SA 10 MEQ TAB PO ONE (05:00)
[2022-09-20 08:19] VITALS: BP 130/67; TEMP 98
[2022-09-20] MEDS: ENOXAPARIN 40 MG/0.4 ML SQ SCH (08:36)
--- NOTE | 2022-09-20 09:06 | P.DS ---
Admission Date: 09/18/22 Discharge Date: 09/20/22 Disposition: ROUTINE DISCHARGE Discharge Condition: FAIR Reason for Admission: Sepsis, submandibular cellulitis Brief History of Present Illness: 37-year-old otherwise healthy female presents the emergency department with concern of infection on her neck. She presented with swelling in her jaw and neck, associated with fever. She was evaluated in the emergency department her labs were significant for leukocytosis with a white blood cell of 16.4 she was initially tachycardic to [address] soft tissue of the neck was performed which revealed nonspecific edematous/inflammatory stranding in the superficial subcutaneous fatty tissues anterior right submandibular region, superficial to the platysma. No abscess, air or foreign body in the area of concern. ED provider consulted with ENT who recommended admission to hospital service, IV antibiotics. Patient reports a recent dental procedure involving the crown of his tooth. Patient is without sublingual edema, trismus, changes in her voice although there is significant erythema, swelling in the submandibular area. She was admitted for further management. Hospital Course: Diagnosis Sepsis secondary to submandibular cellulitis and abscess Patient was admitted to the medical floor and started IV Unasyn. She was seen and evaluated by ENT Dr. Awad who performed incision and drainage and deep tissue wound culture obtained. Patient was monitored overnight with no issues, no fever. She is deemed stable for discharge. She will follow with Dr. Awad within 3 to 5 days in the office. She is prescribed clindamycin. Dr. Awad's recommendation She is also prescribed pain medications-[place] and ibuprofen. Vital Signs/Physical Exam: Temp Pulse Resp BP Pulse Ox 98 F 88 19 130/67 98 09/20/22 08:00 09/20/22 08:00 09/20/22 08:55 09/20/22 08:00 09/20/22 08:55 General: Alert, In no apparent distress, Oriented x3 HEENT: Mucous membr. moist/pink Neck: JVD not distended Respiratory: Clear to auscultation bilaterally, Normal air movement Cardiovascular: No edema, Regular rate/rhythm, Normal S1 S2 Gastrointestinal: Normal bowel sounds, Soft and benign, Non-distended, No t enderness Musculoskeletal: No swelling Integumentary: No rashes, No cyanosis Neurological: Normal strength at 5/5 x4 extr Laboratory Data at Discharge: WBC 9.10 K/uL (4.3-10.9) 09/20/22 02:49 Hgb 11.1 g/dL (12.0-15.0) L 09/20/22 02:49 Hct 33.1 % (36.0-45.0) L 09/20/22 02:49 Plt Count 213 K/uL (152-406) 09/20/22 02:49 Sodium 139 mmol/L (136-145) 09/20/22 02:49 Potassium 3.4 mmol/L (3.5-5.1) L 09/20/22 02:49 BUN 5 mg/dL (7-18) L 09/20/22 02:49 Creatinine 0.47 mg/dL (0.55-1.02) L 09/20/22 02:49 Glucose 98 mg/dL (74-106) 09/20/22 02:49 Home Medications: Amitriptyline HCl 100 mg PO BEDTIME 09/19/22 Duloxetine HCl 30 mg PO DAILY 09/19/22 Pregabalin [Lyrica] 300 mg PO TID 09/19/22 methocarbamoL [Methocarbamol] 750 mg PO QID 09/19/22 Hydrocodone 7.5/APAP 325 [[place] 7.5/325 mg*] 1 tab PO Q6H PRN #15 tab 09/20/22 Ibuprofen 400 mg PO TID #30 tab 09/20/22 clindamycin HCL [Clindamycin HCl] 300 mg PO TID #21 cap 09/20/22 New Medications: clindamycin HCL [Clindamycin HCl] 300 mg PO TID #21 cap Ibuprofen 400 mg PO TID #30 tab Hydrocodone 7.5/APAP 325 [[place] 7.5/325 mg*] 1 tab PO Q6H PRN #15 tab PRN Reason: Pain Diet: Regular Activity: Ad jesi Followup: ARIELA KAY [Primary Care Provider] - 1 Week Time spent managing pt's care (in minutes): 33
--- NOTE | 2022-09-27 17:37 | EKG ---
Test Date: 2022-09-18 Test Time: 19:33:22 Learning Specialist: DEBBIE MEASUREMENT RESULTS: Intervals: Rate: 108 [place]: 150 QRSD: 90 QT: 342 QTc: 458 [place]: P: 47 [place]: 150 QRS: 83 T: 37 INTERPRETIVE STATEMENTS: Sinus tachycardia Cannot rule out Anterior infarct, age undetermined Abnormal ECG No previous ECG available for comparison Electronically Signed On 09-27-22 17:22:48 SCHOOL SPEECH THERAPIST by Arnulfo Simon
== END 2022-09-20 10:54 | disposition home or self-care (01) | DRG 872 ==
LOC: ER 18:13 → ERHOLD 22:18 → 4TH 09-19 13:58
PROVIDERS: ADMIT Hospitalist; ATTEND Hospitalist
PROC: 0J943ZZ Drainage of Right Neck Subcutaneous Tissue and Fascia, Percutaneous Approach (ICD-10-PCS; principal; 2022-09-19)
DX: A41.02 Sepsis due to Methicillin resistant Staphylococcus aureus (principal); K12.2 Cellulitis and abscess of mouth; L02.11 Cutaneous abscess of neck; F17.210 Nicotine dependence, cigarettes, uncomplicated; Z98.51 Tubal ligation status; Z79.899 Other long term (current) drug therapy; Z20.822 Contact with and (suspected) exposure to COVID-19
CPT/HCPCS: 36415; 70491; 80048; 83605; 85025; 87040; 87070; 87075; 87077; 87186; 87205; 87811; 93005; 96365; 96366; 96368; 96375; 99285; J0295; J0692; J1170; J1650; J2270; J2405; J3010; J3370; J7030; J7050; J7120; Q9967

== ENCOUNTER 2024-07-10 05:49 | Emergency (ER) | payer OTHER, SELFPAY ==
[2024-07-10 06:57] LABS: Specific Gravity > 1.030 (1.005-1.030); Urine Bacteria None Seen /HPF (<20); Urine Bilirubin NEGATIVE (Negative); Urine Blood 3+ (Negative); Urine Clarity Turbid (Clear); Urine Color Light-Yellow (Yellow); Urine Culture Reflex Order NOT NEEDED; Urine Glucose NEGATIVE (Negative); Urine Ketones NEGATIVE (Negative); Urine Microscopic Reflex YN ORDER UMIC; Urine Mucus Slight /HPF (None Seen); Urine Nitrite NEGATIVE (Negative); Urine Protein NEGATIVE (Negative); Urine RBC <5 /HPF (None Seen); Urine Urobilinogen Normal (Normal); Urine WBC <5 /HPF (<5); Urine WBC Clump Rare /HPF (None Seen); Urine pH 5.5 (5.0-7.0)
[2024-07-10 07:13] LABS: Specific Gravity > 1.030 (1.005-1.030)
[2024-07-10] MEDS ORDERED: MORPHINE 4 MG/ML SYR ONE (07:32)
[2024-07-10] MEDS ORDERED: ONDANSETRON 4 MG/2 ML VIAL ONE (07:32)
[2024-07-10] MEDS ORDERED: NA CHLORIDE 0.9% 1,000 ML ONE (07:32)
[2024-07-10] MEDS ORDERED: MAGNESIUM SULFATE 1 gm IVPB 1 GM/100 ML BAG IV ONE (07:33)
[2024-07-10 08:03] LABS: Absolute Basophils 0.1 K/uL (0-0.5); Absolute Eosinophils 0.7 K/uL (0-0.5); Absolute Lymphocytes (CBC) 1.7 K/uL (0.7-4.9); Absolute Monocytes 0.4 K/uL (0.1-1.3); Absolute Neutrophil 4.4 K/uL (1.8-8.0); Eosinophils % 9.8 % (0-4.4); Hematocrit 39.7 % (36.0-45.0); Hemoglobin 13.2 g/dL (12.0-15.0); Lymphocytes % 22.7 % (15.3-44.8); MCH 30.5 pg (27.0-35.0); MCHC 33.3 g/dL (32.0-36.0); MCV 91.7 fL (80-100); MPV 9.9 fL (7.6-11.3); Monocytes % 6.1 % (3.3-12.3); Neutrophils % 60.4 % (41.7-73.7); Nucleated Red Blood Cells % 0.2 % (0-0); Platelets 218 thou/uL (152-406); RBC Red Blood Cell Count 4.33 M/uL (3.86-4.86)
--- NOTE | 2024-07-10 08:16 | RAD REPORT ---
EXAMINATION: CT Stone Protocol CLINICAL INDICATION: Female, 39 years old. ABD PAIN TECHNIQUE: CT abdomen and pelvis was performed, without IV contrast, as per department protocol. Axia l, sagittal and coronal reconstructions were obtained. One or more of the following dose reduction techniques were used: Automated exposure control, adjustment of the mA and kV according to the patien t size, and iterative reconstruction. Unless otherwise specified, incidental findings do not require dedicated imaging follow-up. COMPARISON: none available FINDINGS: The lack of intravenous contrast limits the sensitivity of this exam for evaluation of solid visceral organs, vascular structures, and retroperitoneum. LOWER CHEST: The visualized lung bases are clear. LIVER: Normal in size and contour. No focal lesion. BILIARY SYSTEM: No suspicious abnormalities. SPLEEN: Normal size. No focal lesion. PANCREAS: No mass, ductal dilation, or amanda-pancreatic fluid. ADRENALS: Normal; no mass. KIDNEYS AND URETERS: Normal size and contour. No hydronephrosis. URINARY BLADDER: Normal contour. GASTROINTESTINAL TRACT: No evidence of bowel obstruction, significant free fluid, free air or abscess . APPENDIX: Normal appendix. LYMPH NODES: No lymphadenopathy. MUSCULOSKELETAL: No acute or suspicious osseous abnormality. ADDITIONAL FINDINGS: None. IMPRESSION: No acute or concerning abnormalities in the abdomen or pelvis, with evaluation limited by lack of IV contrast.
[2024-07-10 08:33] LABS: Albumin 3.6 g/dL (3.4-5.0); Albumin/Globulin Ratio 0.9 (1.1-1.8); Anion Gap 7.1 mEq/L (5.0-15.0); Bilirubin Total 0.6 mg/dL (0.2-1.0); Globulin 4.1 g/dL (2.3-3.5); Potassium 5.1 mEq/L (3.5-5.1); Protein, Total 7.7 g/dL (6.4-8.2)
--- NOTE | 2024-07-10 09:23 | ER ---
Nurse's Notes [facility] Name: Mera Perea Age: 39 yrs Sex: Female : 1985 Arrival Date: 07/10/2024 Time: 05:49 Bed 19 Private MD: Diagnosis: Hematuria, unspecified;Flank pain Presentation: 07/10 06:03 Chief complaint: Patient states: sudden onset of back pain, my pain is so bad that it ha1 makes me feel short of breath. nausea. 06:03 Coronavirus screen: At this time, the client does not indicate any symptoms associated ha1 with coronavirus-19. Ebola Screen: No symptoms or risks identified at this time. Initial Sepsis Screen: Does the patient meet any 2 criteria? No. Patient's initial sepsis screen is negative. Does the patient have a suspected source of infection? No. Patient's initial sepsis screen is negative. Risk Assessment: Do you want to hurt yourself or someone else? Patient reports no desire to harm self or others. Onset of symptoms was July 10, 2024. 06:03 Method Of Arrival: Ambulatory ha1 06:03 Acuity: MERLENE 3 ha1 Triage Assessment: 06:03 General: Appears uncomfortable, Behavior is calm, cooperative. Pain: Complains of pain ha1 in back Pain radiates to pelvis Pain currently is 10 out of 10 on a pain scale. Neuro: Level of Consciousness is awake, alert, obeys commands, Oriented to person, place, time, situation. Cardiovascular: Capillary refill < 3 seconds Patient's skin is warm and dry. Respiratory: Airway is patent Respiratory effort is even, unlabored, Respiratory pattern is regular, symmetrical. GI: Reports nausea. Derm: Skin is pink, warm \T\ dry. Musculoskeletal: Circulation, motion, and sensation intact. Range of motion: intact in all extremities. 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 - Infectious Disease History:: Denies. - Social history:: Smoking status: Patient reports the use of cigarette tobacco products, denies chronic smoking, but will smoke occasionally. - Family history:: not pertinent. - Hospitalizations: : No recent hospitalization is reported. Screenin:30 [facility] ED Fall Risk Assessment (Adult) History of falling in the last 3 months, bp including since admission No falls in past 3 months (0 pts) Confusion or Disorientation No (0 pts) Intoxicated or Sedated No (0 pts) Impaired Gait No (0 pts) Mobility Assist Device Used No (0 pt) Altered Elimination No (0 pt) Score/Fall Risk Level 0 - 2 = Low Risk Oriented to surroundings. Abuse screen: Denies threats or abuse. Denies injuries from another. Nutritional screening: No deficits noted. Tuberculosis screening: No symptoms or risk factors identified. Assessment: 07:00 General: Appears uncomfortable, obese, Behavior is calm, cooperative, appropriate for bp age. Neuro: Level of Consciousness is awake, alert, obeys commands, Oriented to Appropriate for age. 09:30 Reassessment: Patient appears in no apparent distress at this time. Patient is alert, bp oriented x 3, equal unlabored respirations, skin warm/dry/pink. Vital Signs: 06:03 BP 165 / 115; Pulse 73; Resp 17 S; Pulse Ox 100% on R/A; Weight 88.45 kg; Height 5 ft. ha1 3 in. ; 06:10 Temp 97.6(T); ha1 09:30 BP 147 / 95; Pulse 75; Resp 16; Pulse Ox 100% ; bp 06:03 Body Mass Index 34.54 (88.45 kg, 160.02 cm) ha1 ED Course: 05:54 Patient arrived in ED. gm2 06:16 Triage completed. ha1 06:51 Urinalysis w/ reflexes Sent. ha1 06:56 Kishan Thakkar MD is Attending Physician. rn 07:00 Arm band placed on Patient placed in an exam room, on a stretcher. ll1 07:01 Parrish Mcfarlane, MANUELITO is Primary Nurse. bp 07:37 CBC with Diff Sent. bc6 07:37 CMP Sent. bc6 07:39 Initial lab(s) drawn, by me, sent to lab. Inserted saline lock: 20 gauge in left bc6 antecubital area, using aseptic technique. Blood collected. Flushed with 10 mL NS. 07:46 CT Stone Protocol In Process Unspecified. EDMS 09:30 No provider procedures requiring assistance completed. IV discontinued, intact, bp bleeding controlled, No redness/swelling at site. Pressure dressing applied. 09:30 Patient has correct armband on for positive identification. bp Administered Medications: 07:30 Drug: NS 0.9% IV 1000 ml IV at 1 bolus Per protocol; to be given as a bolus over 60 bp minutes Route: IV; Rate: 1 bolus; Site: left antecubital; 09:33 Follow up: IV Status: Completed infusion bp 07:30 Drug: morphine IVP or IV 4 mg IVP once over 4 mins Route: IVP; Infused Over: 4 mins; bp Site: left antecubital; 09:33 Follow up: Response: No adverse reaction bp 07:30 Drug: Ondansetron IVP 4 mg IVP once; over 2 minutes Route: IVP; Site: left antecubital; bp 09:32 Follow up: Response: No adverse reaction bp 07:30 Drug: Magnesium Sulfate IVPB 1 grams IVPB once over 1 hrs Route: IVPB; Infused Over: 1 bp hrs; Site: left antecubital; 09:32 Follow up: IV Status: Completed infusion bp Medication: 09:30 VIS not applicable for this client. bp Outcome: 09:22 Discharge ordered by . manuelito 09:30 Discharged to home ambulatory, bp 09:30 Condition: stable 09:30 Discharge instructions given to patient, Instructed on discharge instructions, follow up and referral plans. medication usage, Demonstrated understanding of instructions, follow-up care, medications, Prescriptions given X 1, :33 Patient left the ED. bp Signatures: Dispatcher [employer] EDMS Kishan Thakkar MD MD rn Peltier, Brian, RN RN bp Lewis, Lynsay, RN RN 1 Ginger Heredia RN RN 1 Paulette Ward6 Germaine Mcghee 2 Corrections: (The following items were deleted from the chart) 06:18 06:03 Chief complaint: Patient states: sudden onset of back pain, my pain is so bad ha1 that it makes me feel short of breat ha1
--- NOTE | 2024-07-10 09:23 | EDPHYS ---
Physician Documentation [facility] Name: Mera Perea Age: 39 yrs Sex: Female : 1985 Arrival Date: 07/10/2024 Time: 05:49 Bed 19 Private MD: ED Physician Kishan Thakkar HPI: 07/10 07:36 This 39 yrs old Female presents to ER via Ambulatory with complaints of Back Pain. rn 07:36 The patient presents with pain that is acute. The symptoms are located in the right mid rn back. Onset: The symptoms/episode began/occurred 2 day(s) ago. The pain does not radiate. Associated signs and symptoms: Pertinent positives: nausea, Pertinent negatives: abdominal pain, fever, hematuria, incontinence. Modifying factors: The patient symptoms are alleviated by nothing, the patient symptoms are aggravated by nothing. Severity of symptoms: At their worst the symptoms were moderate, in the emergency department the symptoms are unchanged. The patient has experienced similar episodes in the past. The patient has not recently seen a physician. Patient reports right flank pain that began 2 days ago. Feels like previous kidney stone. Denies dysuria. No fever or chills. No abdominal pain. Associated with nausea. Has been able to pass previous kidney stones without intervention.. 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 - Infectious Disease History:: Denies. - Social history:: Smoking status: Patient reports the use of cigarette tobacco products, denies chronic smoking, but will smoke occasionally. - Family history:: not pertinent. - Hospitalizations: : No recent hospitalization is reported. ROS: 07:36 Constitutional: Negative for fever, chills, and weight loss, Cardiovascular: Negative rn for chest pain, palpitations, and edema, Respiratory: Negative for shortness of breath, cough, wheezing, and pleuritic chest pain, Abdomen/GI: Positive for nausea, negative for abdominal pain Back: Positive for right flank pain : Negative for injury, bleeding, discharge, and swelling, MS/Extremity: Negative for injury and deformity, Skin: Negative for injury, rash, and discoloration, Neuro: Negative for headache, weakness, numbness, tingling, and seizure, Exam: 07:36 Constitutional: This is a well developed, well nourished patient who is awake, alert, rn and in no acute distress. Head/Face: Normocephalic, atraumatic. Cardiovascular: Regular rate and rhythm. No pulse deficits. Respiratory: No increased work of breathing, no retractions or nasal flaring. Abdomen/GI: Soft, non-tender Back: No spinal tenderness. MS/ Extremity: Pulses equal, no cyanosis. Neurovascular intact. Full, normal range of motion. Equal circumference. Neuro: Awake and alert, GCS 15, oriented to person, place, time, and situation. Cranial nerves II-XII grossly intact. Motor strength 5/5 in all extremities. Sensory grossly intact. Cerebellar exam normal. Normal gait. Vital Signs: 06:03 BP 165 / 115; Pulse 73; Resp 17 S; Pulse Ox 100% on R/A; Weight 88.45 kg; Height 5 ft. ha1 3 in. ; 06:10 Temp 97.6(T); ha1 09:30 BP 147 / 95; Pulse 75; Resp 16; Pulse Ox 100% ; bp 06:03 Body Mass Index 34.54 (88.45 kg, 160.02 cm) ha1 MDM: 06:56 Medical Screening Exam initiated rn 09:16 Differential diagnosis: Pyelonephritis pyelonephritis, kidney stone. Data reviewed: rn vital signs, nurses notes, lab test result(s), radiologic studies, CT scan, and as a result, I will discharge patient. Counseling: I had a detailed discussion with the patient and/or guardian regarding the historical points, exam findings, and any diagnostic results supporting the discharge/admit diagnosis, lab results, radiology results, the need for outpatient follow up, to return to the emergency department if symptoms worsen or persist or if there are any questions or concerns that arise at home. Special discussion: I discussed with the patient/guardian in detail that at this point there is no indication for admission to the hospital. It is understood, however, that if the symptoms persist or worsen the patient needs to return immediately for re-evaluation. ED course: No acute findings in workup, 3+ hematuria in UA, no evidence of infection, will dc home as flank pain NOS. Return precautions given and understood. Pt improved after pain meds. . 07/10 06:19 Order name: Urinalysis w/ reflexes; Complete Time: 07:05 ha1 07/10 07:05 Order name: Test, Urine; Complete Time: 08:24 ha1 07/10 07:14 Order name: CBC with Diff; Complete Time: 08:24 rn 07/10 07:14 Order name: CMP; Complete Time: 08:35 rn 07/10 08:08 Order name: Lipase; Complete Time: 08:35 EDMS 07/10 07:14 Order name: CT Stone Protocol; Complete Time: 08:24 rn 07/10 07:05 Order name: IV Saline Lock; Complete Time: 07:38 rn 07/10 07:06 Order name: Labs collected and sent; Complete Time: 07:38 rn 07/10 07:06 Order name: Glucose Level; Complete Time: 07:49 rn Administered Medications: 07:30 Drug: NS 0.9% IV 1000 ml IV at 1 bolus Per protocol; to be given as a bolus over 60 bp minutes Route: IV; Rate: 1 bolus; Site: left antecubital; 09:33 Follow up: IV Status: Completed infusion bp 07:30 Drug: morphine IVP or IV 4 mg IVP once over 4 mins Route: IVP; Infused Over: 4 mins; bp Site: left antecubital; 09:33 Follow up: Response: No adverse reaction bp 07:30 Drug: Ondansetron IVP 4 mg IVP once; over 2 minutes Route: IVP; Site: left antecubital; bp 09:32 Follow up: Response: No adverse reaction bp 07:30 Drug: Magnesium Sulfate IVPB 1 grams IVPB once over 1 hrs Route: IVPB; Infused Over: 1 bp hrs; Site: left antecubital; 09:32 Follow up: IV Status: Completed infusion bp Disposition Summary: 07/10/24 09:22 Discharge Ordered Notes: Location: Home rn Problem: new rn Symptoms: have improved rn Condition: Stable rn Diagnosis - Hematuria, unspecified rn - Flank pain rn Followup: rn - With: Private Physician - When: As needed - Reason: Recheck today's complaints, Re-evaluation by your physician Discharge Instructions: - Discharge Summary Sheet rn - Flank Pain, Adult rn Forms: - Medication Reconciliation Form rn - Antibiotic consumer attorney - Prescription Opioid Use rn - Patient Portal Instructions rn - Leadership Thank You Letter rn - Work release form ll1 Prescriptions: - Tramadol 50 mg Oral Tablet - take 1 tablet ORAL route every 8 hours as needed; 12 tablet; Refills: 0, rn Product Selection Permitted Signatures: Dispatcher [employer] EDKishan Alejandre MD MD rn Peltier, Brian RN RN Ginger Kenny RN RN ha1 Corrections: (The following items were deleted from the chart) 07:09 07:06 CBC+H.LAB.BRZ ordered. EDMS EDMS 07:09 07:06 COMPREHENSIVE METABOLIC PANEL+C.LAB.BRZ ordered. EDMS EDMS 07:09 07:06 LIPASE+C.LAB.BRZ ordered. EDMS EDMS 07:09 07:06 Influenza Screen (A \T\ B)+BA.LAB.BRZ ordered. EDMS EDMS 07:09 07:06 SARS-COV-2 Antigen Rapid+I.LAB.BRZ ordered. EDMS EDMS 07:10 07:06 Head Brain Wo Cont+CT.RAD.BRZ ordered. EDMS EDMS 07:14 07:14 Stone Protocol+CT.RAD.BRZ ordered. EDMS EDMS
[2024-07-10 11:59] VITALS: O2SAT 100
[2024-07-10 12:04] VITALS: TEMP 97.6
[2024-07-10 12:06] VITALS: BP 147/95
== END 2024-07-10 09:33 | disposition home or self-care (01) ==
LOC: ER 05:49
DX: R31.9 Hematuria, unspecified (principal); R10.9 Unspecified abdominal pain
CPT/HCPCS: 36415; 74176; 76377; 80053; 81001; 81025; 83690; 85025; 96365; 96366; 96375; 99284; J2405; J3475; J7030

== ENCOUNTER 2025-01-05 21:58 | Emergency (ER) | payer SELFPAY ==
--- NOTE | 2025-01-05 23:41 | RAD REPORT ---
XR ANKLE 3 OR MORE VIEWS RIGHT INDICATION: Pain COMPARISON: None TECHNIQUE: 3 views of the right ankle FINDINGS: BONES: No acute fracture or malalignment. No suspicious sclerotic or lytic lesion. SOFT TISSUE: Soft tissue swelling of lower leg and ankle. OTHER: None. IMPRESSION: No acute bony abnormality. Electronically signed by: Charlene Link MD 01/05/2025 11:34 PM CDT RP Due to temporary technical issues with the PACS/[employer] reporting system, reports are being bg d by the in-house radiologist without review as a courtesy to ensure prompt reporting the interpreting radiologist is fully responsible for the content of the report. Transcribed Date/Time: 01/05/2025 11:41 PM
--- NOTE | 2025-01-05 23:46 | EDPHYS ---
Physician Documentation [facility] Name: Mera Perea Age: 39 yrs Sex: Female : 1985 Arrival Date: 01/05/2025 Time: 21:58 Bed 12 Private MD: ED Physician Randal Barnett HPI: 01/06 00:07 This 39 yrs old Female presents to ER via Wheelchair with complaints of Ankle Injury - sb4 right. 00:08 The patient presents with a contusion, an injury, pain, that is acute, swelling, sb4 tenderness. The complaints affect the right ankle. Onset: The symptoms/episode began/occurred just prior to arrival. Context: The problem was sustained outdoors, resulted from a mis-step by the patient, The mechanism of injury involved inversion of the affected ankle. The patient can fully bear weight on the affected extremity. the patient is able to ambulate, with mild difficulty. Historical: - Allergies: 01/05 22:26 Aspirin; ha1 - PMHx: 22:26 Anxiety; Depression; mass on brain; ha1 - PSHx: 22:26 tubal ligation; ha1 - Immunization history:: Adult Immunizations up to date. - Infectious Disease History:: Denies. - Social history:: Smoking status: Patient reports the use of cigarette tobacco products, denies chronic smoking, but will smoke occasionally. ROS: 01/06 00:08 Constitutional: Negative for fever, chills, and weight loss, sb4 MS/extremity: Positive for injury or acute deformity, ecchymosis, pain, swelling, tenderness, of the right ankle, All other systems are negative, Exam: 00:08 Constitutional: This is a well developed, well nourished patient who is awake, alert, sb4 and in no acute distress. Head/Face: Normocephalic, atraumatic. Eyes: Extra-ocular motions intact. Periorbital areas with no swelling, redness, or edema. ENT: Mucous membranes moist. Respiratory: No increased work of breathing, no retractions or nasal flaring. Skin: Warm, dry with normal turgor. Normal color with no rashes, no lesions, and no evidence of cellulitis. 00:08 Musculoskeletal/extremity: Circulation is intact in all extremities. Sensation intact. Joints: the right ankle displays painful range of motion, swelling, tenderness, 00:08 Musculoskeletal/extremity: ecchymosis and swelling lateral right ankle. Vital Signs: 01/05 22:19 BP 142 / 99; Pulse 105; Resp 18 S; Temp 98.3(O); Pulse Ox 99% on R/A; Weight 88.45 kg; ha1 Height 5 ft. 3 in. ; Pain 10/10; 01/06 01:00 BP 141 / 85; Pulse 92; Resp 18 S; Pulse Ox 99% on R/A; ha1 01/05 22:19 Body Mass Index 34.54 (88.45 kg, 160.02 cm) ha1 01/05 22:19 Pain Scale: Adult ha1 MDM: 01/05 22:10 Medical Screening Exam initiated sb4 01/06 00:09 Differential diagnosis: fracture, sprain. Data reviewed: vital signs, nurses notes, sb4 radiologic studies, and as a result, I will discharge patient. Counseling: I had a detailed discussion with the patient and/or guardian regarding the historical points, exam findings, and any diagnostic results supporting the discharge/admit diagnosis, radiology results, the need for outpatient follow up, for definitive care, to return to the emergency department if symptoms worsen or persist or if there are any questions or concerns that arise at home. 01/05 22:27 Order name: Ankle Right 3 View XRAY sb4 01/05 23:45 Order name: Ankle Splint: Aircast; Complete Time: 00:59 sb4 Administered Medications: 00:30 Drug: HYDROcodone-acetaminophen PO 5 mg-325 mg 1 tabs PO once Route: PO; ha1 01:00 Follow up: Response: No adverse reaction; Marked relief of symptoms; Pain is decreased ha1 Disposition: 20:24 Co-signature as Attending Physician, Randal Barnett MD I agree with the assessment sp4 and plan of care. I reviewed the patient's care provided by the Advanced Practice Provider and agree with the diagnosis and treatment plan. Disposition Summary: 01/05/25 23:46 Discharge Ordered Notes: Location: Home sb4 Problem: new sb4 Symptoms: have improved sb4 Condition: Stable sb4 Diagnosis - Sprain of unspecified ligament of right ankle sb4 Followup: sb4 - With: Jacky Weber MD - When: As needed - Reason: Further diagnostic work-up, Recheck today's complaints, Re-evaluation by your physician Discharge Instructions: - Discharge Summary Sheet sb4 - Ankle Sprain, [id number] sb4 Forms: - Patient Portal Instructions sb4 - Leadership Thank You Letter sb4 Signatures: Dispatcher [employer] Ginger Leach, RN RN ha1 Kera Dunbar, LINDSEY PORTILLO sb4 Randal Barnett MD MD sp4 Corrections: (The following items were deleted from the chart) 01/05 22:28 22:28 Ankle Right 3 View+RAD.RAD.BRZ ordered. EDMS EDMS
--- NOTE | 2025-01-05 23:46 | ER ---
Nurse's Notes [facility] Name: Mera Perea Age: 39 yrs Sex: Female : 1985 Arrival Date: 01/05/2025 Time: 21:58 Bed 12 Private MD: Diagnosis: Sprain of unspecified ligament of right ankle Presentation: 01/05 22:19 Chief complaint: Patient states: WAS TRYING TO GET MY DOG AND INJURED MY RIGHT ANKLE. ha1 SWELLING ON THE RIGHT ANKLE. 22:19 Coronavirus screen: Client denies travel out of the [place] in the last 14 days. Ebola ha1 Screen: No symptoms or risks identified at this time. Initial Sepsis Screen: Does the patient meet any 2 criteria? No. Patient's initial sepsis screen is negative. Does the patient have a suspected source of infection? No. Patient's initial sepsis screen is negative. Risk Assessment: Do you want to hurt yourself or someone else? Patient reports no desire to harm self or others. Onset of symptoms was January 05, 2025. 22:19 Method Of Arrival: Wheelchair ha1 22:19 Acuity: MERLENE 4 ha1 Triage Assessment: 22:26 General: Appears uncomfortable, Behavior is calm, cooperative. Pain: Complains of pain ha1 in right ankle Pain currently is 10 out of 10 on a pain scale. Neuro: Level of Consciousness is awake, alert, obeys commands, Oriented to person, place, time, situation. Cardiovascular: Capillary refill < 3 seconds Patient's skin is warm and dry. Respiratory: Airway is patent Respiratory effort is even, unlabored, Respiratory pattern is regular, symmetrical. GI: Abdomen is round non-distended. : No signs and/or symptoms were reported regarding the genitourinary system. Derm: Skin is pink, warm \T\ dry. Musculoskeletal: Reports pain in right ankle. Historical: - Allergies: 22:26 Aspirin; ha1 - PMHx: 22:26 Anxiety; Depression; mass on brain; ha1 - PSHx: 22:26 tubal ligation; ha1 - Immunization history:: Adult Immunizations up to date. - Infectious Disease History:: Denies. - Social history:: Smoking status: Patient reports the use of cigarette tobacco products, denies chronic smoking, but will smoke occasionally. Screenin:30 [facility] ED Fall Risk Assessment (Adult) History of falling in the last 3 months, ha1 including since admission Yes- single mechanical fall (1 pt) Confusion or Disorientation No (0 pts) Intoxicated or Sedated Yes (3 pts) Impaired Gait Yes (1 pt) Mobility Assist Device Used Yes (1 pt) Altered Elimination No (0 pt) Score/Fall Risk Level 3 or more points = High Risk Oriented to surroundings, Maintained a safe environment, Educated pt \T\ family on fall prevention, incl call for assistance when getting out of bed, Hourly rounding (assess needs \T\ fall precautionary measures) done. Abuse screen: Denies threats or abuse. Denies injuries from another. Nutritional screening: No deficits noted. Tuberculosis screening: No symptoms or risk factors identified. Assessment: 01/06 00:59 Reassessment: Patient and/or family updated on plan of care and expected duration. Pain ha1 level reassessed. Patient is alert, oriented x 3, equal unlabored respirations, skin warm/dry/pink. Patient states symptoms have improved. Vital Signs: 01/05 22:19 BP 142 / 99; Pulse 105; Resp 18 S; Temp 98.3(O); Pulse Ox 99% on R/A; Weight 88.45 kg; ha1 Height 5 ft. 3 in. ; Pain 10/10; 01/06 01:00 BP 141 / 85; Pulse 92; Resp 18 S; Pulse Ox 99% on R/A; ha1 01/05 22:19 Body Mass Index 34.54 (88.45 kg, 160.02 cm) ha1 01/05 22:19 Pain Scale: Adult ha1 ED Course: 01/05 22:00 Patient arrived in ED. im 22:02 Kera Dunbar PA-C is PHCP. sb4 22:02 Randal Barnett MD is Attending Physician. sb4 22: Triage completed. ha1 22:30 Arm band placed on right wrist. ha1 22:30 Patient has correct armband on for positive identification. Bed in low position. Call ha1 light in reach. Side rails up X 1. Provided Education on: plan of care . 23:00 Ankle Right 3 View XRAY In Process Unspecified. EDMS 23:40 No provider procedures requiring assistance completed. ha1 23:46 Jacky Weber MD is Referral Physician. sb4 01/06 01:00 Patient did not have IV access during this emergency room visit. ha1 Administered Medications: 00:30 Drug: HYDROcodone-acetaminophen PO 5 mg-325 mg 1 tabs PO once Route: PO; ha1 01:00 Follow up: Response: No adverse reaction; Marked relief of symptoms; Pain is decreased ha1 Medication: 01/05 22:30 VIS not applicable for this client. ha1 Outcome: 23:46 Discharge ordered by . sb4 01/06 00:59 Discharged to home via wheelchair, with family, ha1 Condition: stable Discharge instructions given to patient, family, Instructed on discharge instructions, follow up and referral plans. Demonstrated understanding of instructions, follow-up care, 01:00 Patient left the ED. ha1 Signatures: Dispatcher [employer] EDMS Ginger Heredia RN RN ha1 Kera Dunbar, PA-C PA-C sb4 Scarlet King
[2025-01-06] MEDS ORDERED: HYDROCODONE/APAP 5/325 MG TAB ONE (00:32)
[2025-01-06 01:21] VITALS: BP 142/99; TEMP 98.3; O2SAT 99
== END 2025-01-06 01:00 | disposition home or self-care (01) ==
LOC: ER 21:58
DX: S93.401A Sprain of unspecified ligament of right ankle, initial encounter (principal)
CPT/HCPCS: 99283